=== PATIENT | female | born 1940 | race Caucasian/White ===

== ENCOUNTER 2020-02-15 15:24 | Outpatient (CLI) | payer MEDICARE, SELFPAY ==
--- NOTE | ~2020-02-15 | CT_ITS ---
EXAMINATION: CT brain wo con EXAM DATE: 02/15/2020 15:57 INDICATION: Memory loss. TECHNIQUE: Spiral CT of the head was performed without contrast. Axial, coronal and sagittal images were reviewed. The dose-length product (DLP) for this examination was 605.33 mGy-cm. The exposure w as tailored according to patient size, and iterative reconstruction (ASIR) was used as additional dos e reduction technique. Comparison is made to prior examination from 09/11/2012. FINDINGS: There is no acute intraparenchymal hemorrhage. No evidence of intraparenchymal brain mass lesion. No evidence of acute infarction. Please note that initial head CT has limited sensitivity f or small or acute infarctions. There is mild periventricular and subcortical hypodensity, nonspecific but probably related to small vessel ischemic disease. There is mild to moderate prominence of the sulci and ventricles related to cerebral atrophy. There is intracranial carotid arteriosclerosis. There are no extra-axial collections. There is no mass effect or midline shift. Patient has had le ft-sided ocular lens surgery. Soft tissue is unremarkable. Mild mucoperiosteal thickening. Mild pr ogression in age-related findings compared to 2013. IMPRESSION: 1. No acute intracranial findings. 2. Chronic age related findings. Reviewed, dictated and finalized at location A. [employer] REPA[employer]ER
== END 2020-02-15 15:25 | disposition home or self-care (01) ==
PROVIDERS: PCP Family Medicine; Visit Provider Psychiatry & Neurology Neurology
DX: R41.3 Other amnesia (principal)
CPT/HCPCS: 70450

== ENCOUNTER 2020-07-14 09:02 | Emergency (ER) | payer MEDICARE, SELFPAY ==
--- NOTE | ~2020-07-14 | XR_ITS ---
EXAMINATION: XR chest 2V EXAM DATE: 07/14/2020 08:51 INDICATION: hypoglycemia, stupor. History atrial fibrillation. TECHNIQUE: Frontal and lateral projections of the chest obtained and reviewed. Comparison is made to prior examination from 10/03/2014.. FINDINGS: Small amount of biapical postinfectious residua. The lungs are otherwise clear. There are no pleural effusions. The cardiomediastinal silhouette is within normal limits. There is no pneumo thorax suspected. Mild to moderate thoracolumbar scoliosis. There are cholecystectomy clips. IMPRESSION: No acute cardiopulmonary findings. Reviewed, dictated and finalized at location B.
[2020-07-14 08:04] VITALS: BP 135/72; PULSE 67; RESP 18; TEMP 37.1; O2SAT 100
[2020-07-14 08:07] LABS: Glucose Point of Care 152 mg/dl (65-105)
--- NOTE | 2020-07-14 08:15 | ECG_ITS ---
Measurements Intervals [place] Rate: 70 P: 40 MS: 171 QRS: 5 QRSD: 94 T: 46 QT: 427 QTc: 463 Interpretive Statements SINUS RHYTHM ATRIAL PREMATURE COMPLEX LOW QRS VOLTAGE IN PRECORDIAL LEADS BASELINE ARTIFACT- II, III, AVF, V1, V4-V6 BORDERLINE ECG Electronically Signed On 07-14-2020 9:15:18 CDT by Bob Trujillo D.O.
--- NOTE | 2020-07-14 08:17 | ED.RECABL ---
HPI - Recheck/Abnormal Lab/Rx General Chief Complaint: Recheck/Abnormal Lab/Rx Stated Complaint: Low blood sugar Time Seen by Provider: 07/14/20 08:05 Source: patient, family and RN notes reviewed Mode of arrival: EMS Limitations: dementia History of Present Illness HPI narrative: This is an 79 year old female with history of DM, dementia who presents from home for evaluation of a low blood sugar. Patient's son states he was unable to get patient to wake up this morning. He states he couldn't understand what she was saying. EMS was called and they found patient's blood sugar was in the 20s. She was given 250 ml D10 and she became responsive. Patient is now oriented x 2, and this is her baseline. She takes lantus 45 units daily, and her last dose was yesterday. Her son states she had low blood sugar on Friday when she was evaluated at [facility] for left eye infection. He states patient ate breakfast and lunch yesterday but he is unsure if she ate dinnner. PAtient does not remember if she ate dinner last night. She states she feels fine and she has no complaints. She denies chest pain, headache, sob, cough, nausea, vomiting, abdominal pain , diarrhea or fever. Related Data Home Medications Medication Instructions Recorded Confirmed pen needle, diabetic 32 gauge x #10 each 02/12/19 06/29/20 cyanocobalamin (vitamin B-12) 2,500 mcg SUBLINGUAL DAILY 07/14/20 [Vitamin B-12] diclofenac sodium PO 07/14/20 sitagliptin [Januvia] 25 mg PO DAILY 07/14/20 Allergies Allergy/AdvReac Type Severity Reaction Status Date / Time Penicillins Allergy Unknown Unknown Verified 07/14/20 08:09 Review of Systems Review of Systems: All systems reviewed & are unremarkable except as noted in HPI and below Constitutional: Constitutional: Denies chills and Denies fever(s) Eyes: Eyes: Reports eye discharge Respiratory: Respiratory: Denies cough, Denies dyspnea and Denies wheezing Gastrointestinal: Gastrointestinal: Denies abdominal pain, Denies diarrhea, Denies nausea and Denies vomiting Neurologic: Denies dizziness and Denies syncope PMF Past Medical History Medical History Chronic atrial fibrillation CKD (chronic kidney disease) stage 3, GFR 30-59 ml/min Depression Dyslipidemia Essential (primary) hypertension GERD without esophagitis Hx pulmonary embolism IDDM (insulin dependent diabetes mellitus) Iron deficiency Mild aortic valve regurgitation Mild diastolic dysfunction Unspecified osteoarthritis, unspecified site Vitamin B12 deficiency Family History Family History Other Family history of malignant neoplasm Social History Social History Smoking status: Never smoker Second hand tobacco smoke exposure: No Alcohol intake: never Substance use: never Substance use type: does not use Gender identity (if verbalized by the patient): Female Exam Const: General: no acute distress and alert Other: oriented to person and place HENMT: Face and sinus: face symmetric Throat: posterior oropharynx normal, tonsils normal and uvula midline Eyes: Conjunctivae: conjunctival abnormality left conjunctival injection and discharge EOM: EOMs intact bilaterally Chest: Chest palpation & inspection: normal inspection of the chest Resp: Effort & Inspection: normal respiratory effort and no retractions Auscultation: clear to auscultation bilaterally Cardio: Rate: regular rate Rhythm: regular rhythm Heart sounds: no murmurs GI: GI Palp: Yes Soft to palpation, No Tenderness to palpation present (GI) and No Guarding due to palpation present (GI) Auscultation: normal bowel sounds Skin: General skin exam: normal color Neuro: General: moves all extremities, no meningeal signs, no focal motor deficits and CN's II-XI intact bilater
[2020-07-14 08:49] LABS: Basophils Absolute Auto 0.1 K/mm3 (0.0-0.1); Basophils Percent Auto 0.7 % (0.2-1.2); Eosinophils Absolute Auto 0.1 K/mm3 (0-0.3); Eosinophils Percent Auto 0.7 % (0-4.4); Hematocrit 39.5 % (37.0-47.0); Hemoglobin 12.7 g/dL (12.0-15.0); Immature Granulocyte Absolute 0.05 K/mm3 (0.00-0.031); Immature Granulocyte Percent A 0.6 % (0-0.5); Lymphocytes Absolute Auto 2.11 K/mm3 (0.9-3.2); Lymphocytes Percent Auto 24.2 % (18.3-44.2); Mean Corpuscular HGB Conc 32.2 g/dl (32-36); Mean Corpuscular Hemoglobin 31.8 pg (26-34); Monocytes Absolute Auto 0.8 K/mm3 (0.1-0.6); Monocytes Percent Auto 9.2 % (2.6-8.5); Neutrophils Absolute Auto 5.7 K/mm3 (1.3-6.7); Neutrophils Percent Auto 64.6 % (45.5-73.1); Platelet Count Result 348 k/mm3 (150-375); Red Blood Count 3.99 M/mm3 (4.2-5.4); Red Cell Distribution Width 14.9 % (11.5-14.5); White Blood Count 8.7 K/mm3 (4.5-10.0)
[2020-07-14 09:00] LABS: Add Urine Microscopic? YES; Appearance Urine Clear (Clear); Bilirubin Urine Negative (Negative); Blood Urine Negative (Negative); Color Urine Yellow (Yellow); Glucose Urine UA Negative (Negative); Ketones Urine Negative (Negative); Leukocyte Esterase Ur Negative LEU/UL (Negative); Mucus Urine Rare /lpf; Nitrate Urine Negative (Negative); Protein Urine 1+ mg/dL (Negative); RBC Urine 0-2 /hpf (0-2); Specific Grav Ur 1.023 (1.001-1.035); Squamous Epithelial Cell Urine Rare /hpf (Few); Urobilinogen Urine Negative mg/dL (<2.0); WBC Urine 0-3 /hpf
[2020-07-14 09:01] LABS: Alanine Aminotransferase 17 U/L (4-35); Albumin Level 3.8 g/dL (3.5-5.1); Alkaline Phosphatase 59 U/L (38-126); Anion Gap 10 mmol/L (8-16); Aspartate Amino Transferase 36 U/L (14-36); Bilirubin,Total 0.6 mg/dL (0.2-1.3); Blood Urea Nitrogen 18 mg/dL (7-17); Calcium 9.1 mg/dL (8.4-10.2); Carbon Dioxide 23 mmol/L (22-30); Chloride 108 mmol/L (98-107); Estimated CRCL calculation 30 ml/min; Estimated Glomerular Filt Rate 43; Glucose 113 mg/dL (65-105); Potassium 2.9 mmol/L (3.4-5.0); Sodium 141 mmol/L (137-145)
[2020-07-14] MEDS: POTASSIUM CHLORIDE 20 MEQ TABLET 40 MEQ PO (09:20)
[2020-07-14 09:40] LABS: Glucose Point of Care 120 mg/dl (65-105)
[2020-07-14 10:49] VITALS: BP 134/98; PULSE 68; RESP 20; O2SAT 98
== END 2020-07-14 10:51 | disposition home or self-care (01) ==
PROVIDERS: Emergency Provider General Practice; PCP Family Medicine
DX: E11.649 Type 2 diabetes mellitus with hypoglycemia without coma (principal); E87.6 Hypokalemia; F03.90 Unspecified dementia, unspecified severity, without behavioral disturbance, psychotic disturbance, mood disturbance, and anxiety; E11.22 Type 2 diabetes mellitus with diabetic chronic kidney disease; I12.9 Hypertensive chronic kidney disease with stage 1 through stage 4 chronic kidney disease, or unspecified chronic kidney disease; N18.30 Chronic kidney disease, stage 3 unspecified; Z79.4 Long term (current) use of insulin; K21.9 Gastro-esophageal reflux disease without esophagitis; E78.5 Hyperlipidemia, unspecified; Z86.711 Personal history of pulmonary embolism; M19.90 Unspecified osteoarthritis, unspecified site; E53.8 Deficiency of other specified B group vitamins; I35.1 Nonrheumatic aortic (valve) insufficiency; I49.1 Atrial premature depolarization; R94.31 Abnormal electrocardiogram [ECG] [EKG]
CPT/HCPCS: 36415; 51701; 71046; 80053; 81001; 82948; 85025; 93005; 99283; A9270

== ENCOUNTER 2020-09-28 08:51 | Emergency (ER) | payer MEDICARE, SELFPAY ==
[2020-09-28] VITALS (13 sets, daily range): BP systolic 98–110; BP diastolic 56–66; PULSE 69–84; RESP 13–20; TEMP 36.6; O2SAT 93–100
--- NOTE | ~2020-09-28 | CT_ITS ---
EXAMINATION: CT chest abdomen pelvis w con DATE: 09/28/2020 11:48 INDICATION: Nausea and vomiting. Fall. TECHNIQUE: Computed tomography (CT) of the chest, abdomen, and pelvis was performed with 100 mL Omnip aque 350 intravenous contrast. Automated exposure control and iterative reconstruction technique were employed. The dose-length product was 543.16 mGy-cm. COMPARISON: Chest CT 09/27/2014 FINDINGS: CHEST CT: There is mild scarring in the peripheral upper lobes of the lungs. No pleural effusion. The heart siz e is normal. There are coronary artery calcifications. No pericardial effusion. There is a small slid ing hiatal hernia. ABDOMEN/PELVIS CT: The liver and spleen are normal. There are changes of cholecystectomy. There is wall thickening of th e gastric antrum, pylorus, and first portion of the duodenum with surrounding fat stranding. The panc reas and adrenal glands are normal. There is cortical thinning of the kidneys. There are cysts in the kidneys measuring up to 9 mm on the left. There is diverticulosis of the colon without evidence of d iverticulitis. There are no dilated loops of bowel. The appendix is not visualized. There are no path ologically enlarged lymph nodes. There is no free intraperitoneal fluid. There is a total right hip a rthroplasty in near-anatomic alignment. There is thoracolumbar levoscoliosis and severe spondylosis. IMPRESSION: 1. Inflammation of the gastric antrum, pylorus, and first portion of the duodenum, likely peptic ulce r disease. 2. Small sliding hiatal hernia. Reviewed, dictated and finalized at location B. IMPRESSION: 1. Inflammation of the gastric antrum, pylorus, and first portion of the duoden um, likely peptic ulcer disease. 2. Small sliding hiatal hernia.
--- NOTE | ~2020-09-28 | XR_ITS ---
XR knee RT 2V 09/28/2020 10:50 Indication: Status post fall. Right knee pain. Procedure: 2 views right knee Comparison: No prior studies for comparison. Findings: There is mild tricompartment osteoarthritis. No fracture, subluxation or dislocation. There is chondrocalcinosis. No significant joint effusion. Impression: 1: No acute fracture. Reviewed, dictated and finalized at location A. Impression: 1: No acute fracture.
--- NOTE | ~2020-09-28 | XR_ITS ---
EXAMINATION: XR pelvis 1-2V DATE: 09/28/2020 10:50 INDICATION: Fall. Unable to provide further history. TECHNIQUE: An anteroposterior view of the pelvis was obtained. COMPARISON: 12/05/2014 FINDINGS: . Visualized right total hip arthroplasty which remains in near-anatomic alignment. No fracture. Mode rate osteoarthritis at the left hip. Partially visualized lumbar levoscoliosis with moderate spondylo sis. IMPRESSION: 1. No acute osseous abnormality. Reviewed, dictated and finalized at location A.
--- NOTE | ~2020-09-28 | CT_ITS ---
EXAMINATION: CT brain wo con DATE: 09/28/2020 11:47 INDICATION: Head injury. TECHNIQUE: Computed tomography (CT) of the head was performed without intravenous contrast. The mA wa s adjusted according to patient size. Iterative reconstruction technique was employed. The dose-lengt h product was 756.67 mGy-cm. COMPARISON: Head CT 02/15/2020, brain MRI 01/02/2018 FINDINGS: There are scattered areas of low attenuation in the cerebral white matter, which is within normal limits for the patient's age. There is no intracranial hemorrhage, acute infarction, or abnorm al intracranial mass lesion. The ventricles are normal in size. There are likely changes of left ocul ar lens replacement surgery. There is mucosal thickening in the paranasal sinuses, worst in left maxi llary sinus. There is thickening and sclerosis of the mcgee of left maxillary sinus, consistent with chronic sinusitis. The mastoid air cells are normal. IMPRESSION: 1. Normal aging brain. 2. Chronic sinusitis. Reviewed, dictated and finalized at location B.
--- NOTE | ~2020-09-28 | CT_ITS ---
EXAMINATION: CT cervical spine wo con DATE: 09/28/2020 11:47 INDICATION: Status post fall. Neck pain. TECHNIQUE: Computed tomography (CT) of the cervical spine was performed without intravenous contrast. The dose-length product was 188 mGy-cm. Automated exposure control and iterative reconstruction tech nique were employed. COMPARISON: None FINDINGS: There is accentuated cervical lordosis. There is advanced degenerative disc disease at C3-4 , C4-5, C5-6, C6-7, C7-T1 and T1-2. There is degenerative anterolisthesis at C7-T1 and T1-2. No acute fracture, subluxation or dislocation. Lung apices are unremarkable. No paraspinal soft tissue abnorm ality. Odontoid process within normal limits. There is multilevel uncinate and facet hypertrophy. Support Group Manager niovertebral junction within normal limits. IMPRESSION: 1. No acute abnormality of the cervical spine. 2: Severe cervical spondylosis. Reviewed, dictated and finalized at location A.
--- NOTE | ~2020-09-28 | XR_ITS ---
EXAMINATION: XR chest 1V portable DATE: 09/28/2020 10:50 INDICATION: Nausea and vomiting. Fall. TECHNIQUE: A single frontal view of the chest was obtained. COMPARISON: Chest 2 views 07/14/2020 FINDINGS: There is mild scarring at the lung apices. No pleural effusion or pneumothorax. The heart s ize is normal. IMPRESSION: 1. Mild scarring at the lung apices. Reviewed, dictated and finalized at location B.
--- NOTE | 2020-09-28 09:22 | ED.GENADULT ---
HPI - General Adult General Chief complaint: Nausea/Vomiting/Diarrhea Stated complaint: N/V Time Seen by Provider: 09/28/20 09:20 History of Present Illness HPI narrative: Patient is an 80-year-old female with past medical history significant for atrial fibrillation on Eliquis, dementia who comes emergency room today accompanied by daughter complaining of nausea and vomiting. The daughter is concerned because the patient had a unwitnessed fall yesterday late afternoon. Says that she was on the couch and she fell off the couch and hit her head on the coffee table. This fall was unwitnessed as the caregiver was in another room but there was no known loss of consciousness. When the caregiver left yesterday evening the patient was then her normal state of health. When a caregiver came this morning the patient had vomited in the bathroom overnight. Patient is demented, she is in her baseline mental state currently. She is unable to tell me anything about the fall yesterday or the events that happened overnight. She says that she is feeling fine. Related Data Home Medications Medication Instructions Recorded Confirmed pen needle, diabetic 32 gauge x #10 each 02/12/19 07/17/20 cyanocobalamin (vitamin B-12) 2,500 mcg SUBLINGUAL DAILY 07/14/20 07/17/20 [Vitamin B-12] sitagliptin [Januvia] 25 mg PO DAILY 07/14/20 07/17/20 apixaban 5 mg tablet 5 mg PO BID tablet 07/17/20 07/17/20 atorvastatin 10 mg tablet 10 mg PO QHS tablet 07/17/20 07/17/20 omeprazole 20 mg capsule,delayed 20 mg PO DAILY cap 07/17/20 07/17/20 release Allergies Allergy/AdvReac Type Severity Reaction Status Date / Time Penicillins Allergy Unknown Unknown Verified 09/28/20 09:30 Review of Systems Constitutional: Constitutional: Reports as per HPI, Denies fever(s), Denies night sweats and Denies weakness Cardiovascular: Cardiovascular: Denies chest pain, Denies edema, Denies leg edema, Denies dyspnea and Denies orthopnea Respiratory: Respiratory: Denies cough and Denies dyspnea Gastrointestinal: Gastrointestinal: Reports as per HPI, Denies abdominal pain, Denies constipation, Denies diarrhea, Reports nausea and Reports vomiting Musculoskeletal: Musculoskeletal: Denies abnormal gait, Denies back pain, Denies numbness and Denies tingling Neurologic: Denies Abnormal speech present, Denies abnormal gait, Denies numbness, Denies tingling and Denies weakness Psychiatric: Psychiatric: Denies homicidal ideation and Denies suicidal ideation FORMERLY [facility], [facility]1983 Past Medical History Medical History Chronic atrial fibrillation CKD (chronic kidney disease) stage 3, GFR 30-59 ml/min Dementia Depression Dyslipidemia Essential (primary) hypertension GERD without esophagitis Hx pulmonary embolism IDDM (insulin dependent diabetes mellitus) Iron deficiency Mild aortic valve regurgitation Mild diastolic dysfunction Unspecified osteoarthritis, unspecified site Vitamin B12 deficiency Family History Family History Other Family history of malignant neoplasm Social History Social History Smoking status: Never smoker Second hand tobacco smoke exposure: No Alcohol intake: never Substance use: never Substance use type: does not use Gender identity (if verbalized by the patient): Female Exam Narrative: Elderly, demented, pleasant, no distress, resting comfortably in bed. Const: General: cooperative, healthy appearing, comfortable, no acute distress, well developed, alert, awake and Physically active Orientation/consciousness: patient oriented x3 HENMT: Head: normocephalic, atraumatic and other (She has a small superficial abrasion at the crown of her head) Ears: external ears normal and other (No hemotympanum) General nose exam: Normal external nose present Eyes: Pupils: Equal, round and
[2020-09-28 09:32] LABS: Basophils Absolute Auto 0.1 K/mm3 (0.0-0.1); Basophils Percent Auto 0.6 % (0.2-1.2); Eosinophils Percent Auto 0.2 % (0-4.4); Hematocrit 36.3 % (37.0-47.0); Hemoglobin 11.2 g/dL (12.0-15.0); Immature Granulocyte Absolute 0.08 K/mm3 (0.00-0.031); Immature Granulocyte Percent A 0.5 % (0-0.5); Lymphocytes Absolute Auto 2.31 K/mm3 (0.9-3.2); Lymphocytes Percent Auto 15.8 % (18.3-44.2); Mean Corpuscular HGB Conc 30.9 g/dl (32-36); Mean Corpuscular Hemoglobin 31.5 pg (26-34); Mean Corpuscular Volume 102.3 fl (80-100); Mean Platelet Volume 10.7 fl (7.4-10.4); Monocytes Absolute Auto 0.9 K/mm3 (0.1-0.6); Monocytes Percent Auto 5.8 % (2.6-8.5); Neutrophils Absolute Auto 11.3 K/mm3 (1.3-6.7); Neutrophils Percent Auto 77.1 % (45.5-73.1); Platelet Count Result 304 k/mm3 (150-375); Red Blood Count 3.55 M/mm3 (4.2-5.4); Red Cell Distribution Width 13.2 % (11.5-14.5); White Blood Count 14.7 K/mm3 (4.5-10.0)
[2020-09-28 09:49] LABS: Alanine Aminotransferase 13 U/L (4-35); Albumin Level 3.6 g/dL (3.5-5.1); Alkaline Phosphatase 52 U/L (38-126); Anion Gap 8 mmol/L (8-16); Aspartate Amino Transferase 26 U/L (14-36); Bilirubin,Total 0.6 mg/dL (0.2-1.3); Blood Urea Nitrogen 50 mg/dL (7-17); Calcium 8.9 mg/dL (8.4-10.2); Carbon Dioxide 18 mmol/L (22-30); Chloride 112 mmol/L (98-107); Estimated Glomerular Filt Rate 48; Glucose 129 mg/dL (65-110); Lipase 75 U/L (23-300); Potassium 4.7 mmol/L (3.4-5.0); Sodium 138 mmol/L (137-145)
[2020-09-28 10:11] LABS: Add Urine Microscopic? NO; Appearance Urine Clear (Clear); Bilirubin Urine Negative (Negative); Blood Urine Negative (Negative); Color Urine Yellow (Yellow); Glucose Urine UA Negative (Negative); Ketones Urine Negative (Negative); Leukocyte Esterase Ur Negative LEU/UL (Negative); Nitrate Urine Negative (Negative); Protein Urine Negative (Negative); Specific Grav Ur 1.025 (1.001-1.035); Urobilinogen Urine Negative mg/dL (<2.0)
--- NOTE | 2020-09-28 10:27 | ECG_ITS ---
Measurements Intervals [place] Rate: 69 P: 56 CO: 177 QRS: -6 QRSD: 87 T: 52 QT: 389 QTc: 419 Interpretive Statements SINUS RHYTHM WITH SINUS ARRHYTHMIA CONSIDER INFERIOR INFARCT, AGE INDETERMINATE ABNORMAL ECG Electronically Signed On 09-28-2020 19:54:20 CDT by Bob Trujillo D.O.
--- NOTE | 2020-09-28 10:28 | PC.NURSE ---
orders placed per PA verbal orders
--- NOTE | 2020-09-28 10:38 | PC.NURSE ---
Pt's daughter now at bedside. Daughter reports pt rolled off of the couch last night and hit her head on the ground. Dried blood noted to head. No swelling or open wounds. Daughter now has pt's medications at bedside. Pt taking Eliquis. Pt still has no complaints at this time. Denies headache, dizziness, or nausea at this time. Pt disoriented at baseline.
--- NOTE | 2020-09-28 10:45 | PC.NURSE ---
Talked to Sunni in lab at 10:45 to add on PT INR PTT and Trop I baseline
[2020-09-28 11:03] LABS: INR 1.5; Prothrombin Time 17.5 Seconds (11.1-14.7)
[2020-09-28 11:04] LABS: Partial Thromboplastin Time 26.2 SECONDS (22.3-36.8)
[2020-09-28 11:08] LABS: Troponin I < 0.012 ng/mL (0.000-0.034)
[2020-09-28] MEDS: ACETAMINOPHEN 325 MG TABLET 650 MG PO (12:08)
[2020-09-28] MEDS: FAMOTIDINE 20 MG/2 ML VIAL IV PUSH (13:54)
== END 2020-09-28 14:08 | disposition home or self-care (01) ==
PROVIDERS: Physician Assistant Medical; Emergency Provider Emergency Medicine; PCP Family Medicine
DX: R11.2 Nausea with vomiting, unspecified (principal); S09.90XA Unspecified injury of head, initial encounter; I48.20 Chronic atrial fibrillation, unspecified; E11.22 Type 2 diabetes mellitus with diabetic chronic kidney disease; I12.9 Hypertensive chronic kidney disease with stage 1 through stage 4 chronic kidney disease, or unspecified chronic kidney disease; N18.30 Chronic kidney disease, stage 3 unspecified; F03.90 Unspecified dementia, unspecified severity, without behavioral disturbance, psychotic disturbance, mood disturbance, and anxiety; K21.9 Gastro-esophageal reflux disease without esophagitis; E78.5 Hyperlipidemia, unspecified; Z86.711 Personal history of pulmonary embolism; I35.1 Nonrheumatic aortic (valve) insufficiency; M19.90 Unspecified osteoarthritis, unspecified site; E53.8 Deficiency of other specified B group vitamins; Z79.01 Long term (current) use of anticoagulants; R94.31 Abnormal electrocardiogram [ECG] [EKG]; M47.812 Spondylosis without myelopathy or radiculopathy, cervical region; K44.9 Diaphragmatic hernia without obstruction or gangrene; R93.3 Abnormal findings on diagnostic imaging of other parts of digestive tract; W08.XXXA Fall from other furniture, initial encounter
CPT/HCPCS: 36415; 51701; 70450; 71045; 71260; 72125; 72170; 73560; 74177; 80053; 81003; 83690; 84484; 85025; 85610; 85730; 93005; 96374; 99284; A9270; Q9967

== ENCOUNTER 2020-11-23 01:21 | Day surgery (SDC) | payer MEDICARE, SELFPAY ==
[2020-11-23 09:00] VITALS: BP 120/66; PULSE 58; RESP 16; TEMP 36.4; O2SAT 100
[2020-11-23] MEDS: LACTATED RINGERS 1,000 ML 150 ML IV CONT (09:06)
[2020-11-23 09:12] LABS: Glucose Point of Care 88 mg/dl (65-105)
--- NOTE | 2020-11-23 09:12 | WPDGICN ---
Assessment and Plan Assessment and plan (1) Melena: Code(s): K92.1 - Melena Status: Acute Assessment and Plan: Patient with recent episode of melenic stools. She has been maintained on anticoagulation because of atrial fibrillation. Plan to continue PPI an EGD will be performed to assess for possible upper GI source of blood loss. (2) PUD (peptic ulcer disease): Code(s): K27.9 - Peptic ulcer, site unspecified, unspecified as acute or chronic, without hemorrhage or perforation Status: Acute Assessment and Plan: Recent CT scan suspicious for possible ulcer disease to confirm this an EGD will be performed. Patient recently has been on PPI therapy. Continue monitoring hemoglobin intermittently is suggested while anticoagulated. Long-term use of PPI therapy may be best approach given her anticoagulation. GI Consult Note Consult date/time: 11/23/20 09:12 HPI: Suzy Verdugo is a 80 year old female Presents for EGD. Patient suffers with dementia. Apparently had vomiting of coffee-ground material and passage of black melenic stools prompting her to go to the ER in September. A CT scan performed recently suggest swelling in the stomach subspecialists for an ulcer. Patient has been maintained on omeprazole 20mg p.o. daily since that time. Previously had taken a moderate amount of nonsteroidal anti-inflammatory agents on a routine basis. Patient presents today for EGD to assess possible ulcer disease as a source of melenic GI blood loss. Review of Systems Review of Systems: ROS unobtainable: Yes unobtainable due to mental status PMFSH Past Medical History Medical History (Updated 10/24/20 @ 17:38 by SANIYA LeeN-C) Chronic atrial fibrillation CKD (chronic kidney disease) stage 3, GFR 30-59 ml/min Dementia Depression Dyslipidemia Essential (primary) hypertension GERD without esophagitis Hx pulmonary embolism IDDM (insulin dependent diabetes mellitus) Iron deficiency Melena Mild aortic valve regurgitation Mild diastolic dysfunction Unspecified osteoarthritis, unspecified site Vitamin B12 deficiency Family History Family History Other Family history of malignant neoplasm Social History Social History Smoking status: Never smoker Second hand tobacco smoke exposure: No Alcohol intake: never Substance use: never Substance use type: does not use Living arrangements: with family Gender identity (if verbalized by the patient): Female Spiritual care concerns: No Meds Home Medications and Allergies Home Medications Medication Instructions Recorded Confirmed Type pen needle, diabetic 32 gauge x #10 each 02/12/19 10/04/20 History blood-glucose meter #1 each 02/16/19 10/04/20 Rx blood sugar diagnostic See Rx Instructions .ROUTE 01/27/20 10/04/20 Rx .COMPLEX #200 strip lancets See Rx Instructions .ROUTE 01/27/20 10/04/20 Rx .COMPLEX #200 ea apixaban 5 mg tablet 5 mg PO BID tablet 07/17/20 11/23/20 History atorvastatin 10 mg tablet 10 mg PO QHS tablet 07/17/20 11/23/20 History citalopram 20 mg tablet 20 mg PO DAILY #90 tablet 09/26/20 11/23/20 Rx diltiazem HCl 180 mg 180 mg PO DAILY #90 cap 09/26/20 11/23/20 Rx capsule,extended release 24 hr ondansetron HCl 4 mg tablet 4 mg PO Q6H PRN #10 tablet 10/04/20 11/23/20 Rx sitagliptin 25 mg tablet 25 mg PO DAILY #90 tablet 10/17/20 11/23/20 Rx potassium chloride 20 mEq 20 meq PO DAILY #60 tablet 10/23/20 11/23/20 Rx tablet,extended release pantoprazole 40 mg tablet,delayed 40 mg PO QAM #90 tablet 10/31/20 11/23/20 Rx release insulin glargine [Lantus Solostar 25 unit SUBCUT QAM 11/09/20 11/23/20 History U-100 Insulin] memantine 10 mg PO BID 11/09/20 11/23/20 History omeprazole 20 mg PO DAILY 11/09/20 11/23/20 History alprazolam 0.25 mg tablet 0.25 mg PO DAILY PRN #90 tabl
--- NOTE | 2020-11-23 09:42 | WPDANESEPPF ---
Anes - Initial Pre Proc Eval Procedure: Operation Date: 11/23/20 10:00 Proposed Procedures p Esophagogastroduodenoscopy - Vahid Plascencia MD Date/Time: 11/23/20 09:42 Surgeon: Vahid Plascencia MD Pre Op Diagnosis: abnormal CAT scan, melena Patient Data Age: 80 Gender: F Height: 1.7 m Weight: 58.9 kg Last Vital Signs Temp 97.5 F L 11/23/20 09:00 Pulse 58 L 11/23/20 09:00 Resp 16 11/23/20 09:00 BP 120/66 11/23/20 09:00 Pulse Ox 100 11/23/20 09:00 Allergies Allergy/AdvReac Type Severity Reaction Status Date / Time Penicillins Allergy Unknown Unknown Verified 11/23/20 08:58 Home Medications Medication Instructions Recorded Confirmed Type pen needle, diabetic 32 gauge x #10 each 02/12/19 10/04/20 History blood-glucose meter #1 each 02/16/19 10/04/20 Rx blood sugar diagnostic See Rx Instructions .ROUTE 01/27/20 10/04/20 Rx .COMPLEX #200 strip lancets See Rx Instructions .ROUTE 01/27/20 10/04/20 Rx .COMPLEX #200 ea apixaban 5 mg tablet 5 mg PO BID tablet 07/17/20 11/23/20 History atorvastatin 10 mg tablet 10 mg PO QHS tablet 07/17/20 11/23/20 History citalopram 20 mg tablet 20 mg PO DAILY #90 tablet 09/26/20 11/23/20 Rx diltiazem HCl 180 mg 180 mg PO DAILY #90 cap 09/26/20 11/23/20 Rx capsule,extended release 24 hr ondansetron HCl 4 mg tablet 4 mg PO Q6H PRN #10 tablet 10/04/20 11/23/20 Rx sitagliptin 25 mg tablet 25 mg PO DAILY #90 tablet 10/17/20 11/23/20 Rx potassium chloride 20 mEq 20 meq PO DAILY #60 tablet 10/23/20 11/23/20 Rx tablet,extended release pantoprazole 40 mg tablet,delayed 40 mg PO QAM #90 tablet 10/31/20 11/23/20 Rx release insulin glargine [Lantus Solostar 25 unit SUBCUT QAM 11/09/20 11/23/20 History U-100 Insulin] memantine 10 mg PO BID 11/09/20 11/23/20 History omeprazole 20 mg PO DAILY 11/09/20 11/23/20 History alprazolam 0.25 mg tablet 0.25 mg PO DAILY PRN #90 tablet 11/21/20 11/23/20 Rx MDD anxiety Laboratory Tests 11/23/20 09:05 POC Capillary Glucose 88 mg/dl mg/dl (65-105) Patient hx anesthesia problems: none Family hx anesthesia problems: none Results Review: All pre-operative results and documents have been reviewed as part of the pre-operative evaluation. [facility] Past Medical History Medical History (Updated 10/24/20 @ 17:38 by KENDELL Lee) Chronic atrial fibrillation CKD (chronic kidney disease) stage 3, GFR 30-59 ml/min Dementia Depression Dyslipidemia Essential (primary) hypertension GERD without esophagitis Hx pulmonary embolism IDDM (insulin dependent diabetes mellitus) Iron deficiency Melena Mild aortic valve regurgitation Mild diastolic dysfunction Unspecified osteoarthritis, unspecified site Vitamin B12 deficiency Family History Family History Other Family history of malignant neoplasm Social History Social History Smoking status: Never smoker Second hand tobacco smoke exposure: No Alcohol intake: never Substance use: never Substance use type: does not use Living arrangements: with family Gender identity (if verbalized by the patient): Female Spiritual care concerns: No Anes - Eval Final PreProcedure Day of Procedure 11/23/20 09:42 Patient weight: normal Heart: regular rate and rhythm Lungs: clear to auscultation Airway: Mallampati scale class II Neurological: alert and oriented Last oral intake: >/= 8 hours ASA classification: III Emergent: no Anesthetic plan: proceed Anesthesia type and monitoring: general GIVS and standard monitoring Results Review: All pre-operative results and documents have been reviewed as part of the pre-operative evaluation. Informed Consent: The patient's anesthetic plan and its attendant risks and benefits were discussed with the patient/family/POA. Questions were solicited and answers provided to the satisfac
[2020-11-23 10:38] VITALS: BP 139/66; PULSE 53; RESP 21; O2SAT 98
[2020-11-23 10:48] VITALS: BP 145/73; PULSE 55; RESP 12; O2SAT 98
[2020-11-23 10:58] VITALS: BP 143/74; PULSE 53; RESP 20; O2SAT 98
[2020-11-23 11:06] LABS: Glucose Point of Care 83 mg/dl (65-105)
== END 2020-11-23 11:20 | disposition home or self-care (01) ==
PROVIDERS: PCP Family Medicine; Visit Provider Internal Medicine Gastroenterology
PROC: 0DJ08ZZ Inspection of Upper Intestinal Tract, Via Natural or Artificial Opening Endoscopic (ICD-10-PCS; CPT 43235; principal; 2020-11-23 10:00)
DX: R93.3 Abnormal findings on diagnostic imaging of other parts of digestive tract (principal); K92.1 Melena; K31.9 Disease of stomach and duodenum, unspecified; I12.9 Hypertensive chronic kidney disease with stage 1 through stage 4 chronic kidney disease, or unspecified chronic kidney disease; N18.30 Chronic kidney disease, stage 3 unspecified; E11.22 Type 2 diabetes mellitus with diabetic chronic kidney disease; I48.20 Chronic atrial fibrillation, unspecified; I35.1 Nonrheumatic aortic (valve) insufficiency; F03.90 Unspecified dementia, unspecified severity, without behavioral disturbance, psychotic disturbance, mood disturbance, and anxiety; E78.5 Hyperlipidemia, unspecified; F32.9 Major depressive disorder, single episode, unspecified; K21.9 Gastro-esophageal reflux disease without esophagitis; Z86.711 Personal history of pulmonary embolism; Z79.4 Long term (current) use of insulin; Z79.01 Long term (current) use of anticoagulants
CPT/HCPCS: 43239; 82948; 87081; J2704; J7120

== ENCOUNTER 2021-08-04 07:47 | Emergency (ER) | payer MEDICARE, SELFPAY ==
--- NOTE | ~2021-08-04 | XR_ITS ---
EXAMINATION: XR hip BI 2V w AP pelvis DATE: 08/04/2021 09:23 INDICATION: Hip pain after fall TECHNIQUE: AP view the pelvis and two views of each hip were obtained. COMPARISON: 09/28/2020 FINDINGS: There are changes of right hip arthroplasty. No fracture is identified. There is moderate o steoarthritis of the left hip. There is at least moderate spondylosis of the visualized lower lumbar spine. IMPRESSION: 1. Moderate left hip osteoarthritis without acute osseous abnormality. Reviewed, dictated and finalized at location A.
--- NOTE | ~2021-08-04 | CT_ITS ---
EXAMINATION: CT brain wo con INDICATION: Head injury COMPARISON: 09/28/2020 TECHNIQUE: Standard unenhanced head CT. The dose-length product (DLP) was 605.33 mGy-cm. The mA was a djusted according to patient size. Iterative reconstruction technique was employed. FINDINGS: There is no acute intraparenchymal hemorrhage. No evidence of mass lesion. No evidence of a cute infarction. There is mild periventricular and subcortical hypodensity probably related to small vessel ischemic disease. There is mild prominence of the sulci and ventricles related to cerebral atr ophy. Intracranial calcified cerebral atherosclerosis is noted. There are no extra-axial collections. There is no mass effect or midline shift. Changes in the left globe are likely from ocular lens surg joann. There is chronic opacification of the left maxillary sinus with thickening and sclerosis of the sinus mcgee, consistent with chronic sinusitis. There is mild mucosal thickening of the remaining par anasal sinuses. IMPRESSION: 1. No acute intracranial abnormality. 2. Chronic sinusitis. Reviewed, dictated and finalized at location A.
--- NOTE | ~2021-08-04 | XR_ITS ---
EXAMINATION: XR shoulder RT min 2V INDICATION: Right shoulder pain TECHNIQUE: Four views of the right shoulder are submitted. COMPARISON: 10/19/2003 FINDINGS: Normal alignment. No fracture. There is moderate osteoarthritis of the glenohumeral and acr omioclavicular joints. Soft tissues are unremarkable. IMPRESSION: 1. Osteoarthritis without acute osseous abnormality. Reviewed, dictated and finalized at location A.
--- NOTE | ~2021-08-04 | CT_ITS ---
EXAMINATION: CT cervical spine wo con DATE: 08/04/2021 09:15 INDICATION: Neck pain TECHNIQUE: Computed tomography (CT) of the cervical spine was performed without intravenous contrast. The dose-length product (DLP) was 307.42 mGy-cm. Automated exposure control and iterative reconstruc tion technique were employed. COMPARISON: 09/28/2020 FINDINGS: There are 2 mm of stable retrolisthesis of C3 on C4 and 4 mm of stable anterolisthesis of C 7 on T1. The vertebral body heights are maintained. There is severe loss of intervertebral disc space height throughout the cervical spine. The odontoid is intact. There is severe multilevel facet and u ncovertebral joint osteoarthritis. IMPRESSION: 1. Severe cervical spondylosis without acute findings or significant interval change. Reviewed, dictated and finalized at location A. IMPRESSION: 1. Severe cervical spondylosis without acute findings or significant interval dae toscano
[2021-08-04 07:54] VITALS: BP 111/62; PULSE 90; RESP 20; O2SAT 95
[2021-08-04 08:06] VITALS: RESP 20; O2SAT 95
--- NOTE | 2021-08-04 08:34 | ED.FALL ---
HPI - Fall General Chief Complaint: Fall Stated Complaint: Fall Time Seen by Provider: 08/04/21 07:49 History of Present Illness HPI Narrative: 80-year-old female presenting to the emergency department for evaluation after having a ground-level fall this morning. Family states that the patient attempted multiple times in order to stand up and when she finally stood up she was not able to stabilize and did lower herself down to the ground. Family came in and saw her laying on her left side. Patient had been complaining of head neck and hip pain after the incident. Patient does have history of Alzheimer's dementia. Patient is denying any complaints to me. Related Data Home Medications Medication Instructions Recorded Confirmed pen needle, diabetic 32 gauge x #10 ea 02/12/19 07/11/21 (BD Ultra-Fine Madeline Pen Needle) prevagen extra strength 1 cap BYMOUTH DAILY 12/28/20 07/11/21 vitamin B12 2,500 mcg-folic acid 1 tablet PO 3XW 01/25/21 07/11/21 400 mcg disintegrating tablet Allergies Allergy/AdvReac Type Severity Reaction Status Date / Time Penicillins Allergy Unknown Unknown Verified 08/04/21 08:21 Review of Systems Review of Systems: CONSTITUTIONAL: Denies fever, chills, or sweats. EYES: Denies visual changes, redness, or discharge. ENT: Denies rhinorrhea, congestion, sore throat, or otalgia. CARDIOVASCULAR: Denies chest pain, palpitations, or edema. RESPIRATORY: Denies cough or dyspnea. GASTROINTESTINAL: Denies abdominal pain, nausea, vomiting, or diarrhea. GENITOURINARY: Denies dysuria or hematuria. SKIN: Denies rash or itching. MUSCULOSKELETAL: See HPI NEUROLOGIC: Denies headache, numbness, or weakness. PSYCHIATRIC: Denies anxiety or depression. [facility] Past Medical History Medical History Anxiety Chronic atrial fibrillation CKD (chronic kidney disease) stage 3, GFR 30-59 ml/min Dementia Depression Dyslipidemia Essential (primary) hypertension GERD without esophagitis Hx pulmonary embolism IDDM (insulin dependent diabetes mellitus) Iron deficiency Melena Mild aortic valve regurgitation Mild diastolic dysfunction Unspecified osteoarthritis, unspecified site Vitamin B12 deficiency Family History Family History Other Family history of malignant neoplasm Social History Social History Smoking status: Never smoker Second hand tobacco smoke exposure: No Alcohol intake: never Substance use: never Substance use type: does not use Additional living arrangements 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 , PT HAS [employer]DER[employer] Gender identity (if verbalized by the patient): Female Spiritual care concerns: No Exam Narrative: APPEARANCE: Well appearing, no pain, no distress, well-nourished. HEAD: normocephalic, atraumatic. EYES: PERRLA/EOMI, conjunctivae clear. NOSE: Normal no drainage NECK: Supple. No adenopathy, no masses. RESPIRATORY: Airway patent, respirations nonlabored. Clear to auscultation bilaterally, no rales, rhonchi, wheezing. CARDIOVASCULAR: Regular rate and rhythm without murmurs rubs or gallops. ABDOMINAL: Soft, nontender, nondistended, normal bowel sounds MUSCULOSKELETAL: No pain with passive range of motion of hips. Some tenderness to right shoulder to palpation. No deformity. Normal range of motion. NEURO: Alert. Cranial nerves II through XII intact. At baseline, grossly intact SKIN: Warm, dry. Normal Color Course Course Emergency Course: Patient family were updated on the results of the work-up. Patient was able to ambulate at her baseline without issue. Patient and family are comfortable with the plan for discharge and close follow-up. All question concerns were addressed. Vital Signs Vital signs: Vital Signs Pulse Rate 90 08/04/21 07:54 Respiratory Rate 20 08/04/21 07:54 Blood Pressure 111/6
[2021-08-04 09:01] LABS: Basophils Absolute Auto 0.1 K/mm3 (0.0-0.1); Basophils Percent Auto 1.1 % (0.2-1.2); Eosinophils Absolute Auto 0.1 K/mm3 (0-0.3); Eosinophils Percent Auto 0.7 % (0-4.4); Hematocrit 40.6 % (37.0-47.0); Hemoglobin 12.8 g/dL (12.0-15.0); Immature Granulocyte Absolute 0.05 K/mm3 (0.00-0.031); Immature Granulocyte Percent A 0.5 % (0-0.5); Lymphocytes Absolute Auto 1.05 K/mm3 (0.9-3.2); Lymphocytes Percent Auto 11.5 % (18.3-44.2); Mean Corpuscular HGB Conc 31.5 g/dl (32-36); Mean Corpuscular Hemoglobin 29.4 pg (26-34); Mean Corpuscular Volume 93.3 fl (80-100); Mean Platelet Volume 10.6 fl (7.4-10.4); Monocytes Absolute Auto 1.1 K/mm3 (0.1-0.6); Monocytes Percent Auto 12.1 % (2.6-8.5); Neutrophils Absolute Auto 6.8 K/mm3 (1.3-6.7); Neutrophils Percent Auto 74.1 % (45.5-73.1); Platelet Count Result 223 k/mm3 (150-375); Red Blood Count 4.35 M/mm3 (4.2-5.4); Red Cell Distribution Width 14.7 % (11.5-14.5); White Blood Count 9.2 K/mm3 (4.5-10.0)
[2021-08-04 09:15] LABS: Alanine Aminotransferase 25 U/L (6-35); Albumin Level 3.7 g/dL (3.5-5.1); Alkaline Phosphatase 64 U/L (38-126); Anion Gap 3 mmol/L (8-16); Aspartate Amino Transferase 48 U/L (14-36); Bilirubin,Total 0.6 mg/dL (0.2-1.3); Blood Urea Nitrogen 22 mg/dL (7-17); Calcium 8.7 mg/dL (8.4-10.2); Carbon Dioxide 26 mmol/L (22-30); Chloride 109 mmol/L (98-107); Estimated CRCL calculation 29 ml/min; Estimated Glomerular Filt Rate 43; Glucose 105 mg/dL (65-110); Potassium 4.7 mmol/L (3.4-5.0); Sodium 138 mmol/L (137-145)
[2021-08-04 10:01] LABS: Appearance Urine Clear (Clear); Bilirubin Urine Negative (Negative); Blood Urine Negative (Negative); Color Urine Yellow (Yellow); Glucose Urine UA Negative (Negative); Ketones Urine Negative (Negative); Leukocyte Esterase Ur Negative LEU/UL (Negative); Nitrate Urine Negative (Negative); Protein Urine Negative (Negative); Urobilinogen Urine 0.2 mg/dL (<2.0); pH Urine 5.5 (5.0-9.0)
[2021-08-04 10:02] LABS: Add Urine Microscopic? NO
[2021-08-04] MEDS: ACETAMINOPHEN 325 MG TABLET 650 MG PO (11:15)
[2021-08-04 11:41] VITALS: RESP 16
== END 2021-08-04 11:42 | disposition home or self-care (01) ==
PROVIDERS: Emergency Provider Emergency Medicine; PCP Family Medicine
DX: S09.90XA Unspecified injury of head, initial encounter (principal); S19.9XXA Unspecified injury of neck, initial encounter; S79.919A Unspecified injury of unspecified hip, initial encounter; F03.90 Unspecified dementia, unspecified severity, without behavioral disturbance, psychotic disturbance, mood disturbance, and anxiety; I48.20 Chronic atrial fibrillation, unspecified; I12.9 Hypertensive chronic kidney disease with stage 1 through stage 4 chronic kidney disease, or unspecified chronic kidney disease; N18.30 Chronic kidney disease, stage 3 unspecified; E11.22 Type 2 diabetes mellitus with diabetic chronic kidney disease; E78.5 Hyperlipidemia, unspecified; K21.9 Gastro-esophageal reflux disease without esophagitis; I34.0 Nonrheumatic mitral (valve) insufficiency; E53.8 Deficiency of other specified B group vitamins; Z79.01 Long term (current) use of anticoagulants; Z79.84 Long term (current) use of oral hypoglycemic drugs; Z79.4 Long term (current) use of insulin; J32.9 Chronic sinusitis, unspecified; M16.12 Unilateral primary osteoarthritis, left hip; M19.011 Primary osteoarthritis, right shoulder; W18.39XA Other fall on same level, initial encounter
CPT/HCPCS: 36415; 51701; 70450; 72125; 73030; 73521; 80053; 81003; 85025; 99284; A9270

== ENCOUNTER 2021-08-15 16:19 | Emergency (ER) | payer MEDICARE, SELFPAY ==
--- NOTE | ~2021-08-15 | CT_ITS ---
EXAMINATION: CT facial & cervical spine wo DATE: 08/15/2021 17:43 INDICATION: head injury s/p fall TECHNIQUE: Computed tomography (CT) of the maxillofacial region and cervical spine was performed with out intravenous contrast. Automated exposure control and iterative reconstruction technique were empl oyed. The dose-length product was 312.81 mGy-cm. COMPARISON: None FINDINGS: CERVICAL: Vertebral Body Alignment: Intact. Craniocervical and atlantoaxial alignment: Severe degenerative change. Alignment intact. Osseous structures/fracture: No evidence of a lytic or blastic process in the visualized spine. No e vidence of acute fracture. Cervical soft tissues: The paraspinal soft tissues planes are maintained. Degenerative changes: Multilevel severe degenerative disc disease. Multilevel facet arthropathy. Mult ilevel bilateral severe neural foraminal narrowing. Severe central canal narrowing at C3-4. FACE: Soft Tissues: Right frontal/supraorbital soft tissue laceration and contusion. Facial bones: No acute fracture. No lytic or blastic process. Eyes: The globes are intact. Left lens replacement. The soft tissue planes of the orbits are maintai jay. Paranasal Sinuses: Retention cyst or polyp in a posterior left ethmoid air cell. Opacification and d ense material within the left maxillary sinus, right posterior ethmoid air cells, and the right sphen oid sinus. Foreign Bodies: No radiopaque foreign bodies. Other Findings: Periodontal disease. IMPRESSION: No acute fracture or traumatic malalignment in the cervical spine. No acute facial bone fracture. Chr onic sinusitis. Reviewed, dictated and finalized at location K. IMPRESSION: No acute fracture or traumatic malalignment in the cervical spine. No acute fac ial bone fracture. Chronic sinusitis.
--- NOTE | ~2021-08-15 | CT_ITS ---
EXAMINATION: CT brain wo con DATE: 08/15/2021 17:42 INDICATION: head injury s/p fall . TECHNIQUE: Computed tomography (CT) of the head was performed without intravenous contrast. The mA wa s adjusted according to patient size. Iterative reconstruction technique was employed. The dose-lengt h product was 605.33 mGy-cm. COMPARISON: 08/04/2021. FINDINGS: No acute intracranial hemorrhage or extra-axial fluid collection. No hydrocephalus, mass, or herniation. No acute ischemic infarct. Unremarkable dural venous sinus attenuation. No acute osseous abnormality. Right frontal/supraorbital soft tissue laceration/contusion. Opacification and inspissated material in the left maxillary, posterior ethmoid air cells, and right sphenoid sinus, otherwise the aerated spaces are clear. Mild atrophy and chronic white matter change. Atherosclerotic intracranial calcification. Left lens r eplacement. IMPRESSION: No acute intracranial process. Reviewed, dictated and finalized at location K.
[2021-08-15 16:21] VITALS: BP 104/66; PULSE 84; RESP 16; O2SAT 96
--- NOTE | 2021-08-15 16:27 | ECG_ITS ---
Measurements Intervals [place] Rate: 78 P: 36 [place]: 158 QRS: -1 QRSD: 82 T: 65 QT: 379 QTc: 434 Interpretive Statements SINUS RHYTHM LOW QRS VOLTAGE IN PRECORDIAL LEADS CONSIDER INFERIOR INFARCT, AGE INDETERMINATE BORDERLINE ST-T WAVE ABNORMALITY- HIGH LATERAL LEADS BASELINE ARTIFACT- II, III, AVR, AVL, AVF, V1 ABNORMAL ECG Electronically Signed On 08-20-2021 10:35:36 CDT by Bob Trujillo D.O.
--- NOTE | 2021-08-15 16:40 | ED.HEATRA ---
HPI - Head Injury General Chief complaint: Head Injury Stated complaint: fall Time Seen by Provider: 08/15/21 16:21 History of Present Illness HPI Narrative: 80-year-old pleasantly confused female presents to the emergency room for evaluation of a fall injury. Patient is normally unsteady on her feet, and witnesses state that she was attempting to reach for something on a counter when she misstepped and struck her head on the counter. Witness states that patient did not have a syncopal episode prior to event. This also states that patient was alert and oriented x1, which is her normal baseline. Family states patient is on a blood thinner for an unknown cardiac issue. Related Data Home Medications Medication Instructions Recorded Confirmed pen needle, diabetic 32 gauge x #10 ea 02/12/19 07/11/21 (BD Ultra-Fine Madeline Pen Needle) prevagen extra strength 1 cap BYMOUTH DAILY 12/28/20 07/11/21 vitamin B12 2,500 mcg-folic acid 1 tablet PO 3XW 01/25/21 07/11/21 400 mcg disintegrating tablet Allergies Allergy/AdvReac Type Severity Reaction Status Date / Time Penicillins Allergy Unknown Unknown Verified 08/04/21 08:21 Review of Systems Review of Systems: CONSTITUTIONAL: Denies fever, chills, or sweats. EYES: Denies visual changes, redness, or discharge. ENT: Denies rhinorrhea, congestion, sore throat, or otalgia. CARDIOVASCULAR: Denies chest pain, palpitations, or edema. RESPIRATORY: Denies cough or dyspnea. GASTROINTESTINAL: Denies abdominal pain, nausea, vomiting, or diarrhea. GENITOURINARY: Denies dysuria or hematuria. SKIN: Reports laceration to right brow MUSCULOSKELETAL: Denies back pain, joint pain, or myalgia. NEUROLOGIC: Denies headache, numbness, dizziness, or weakness. PSYCHIATRIC: Denies anxiety or depression. [facility] Past Medical History Medical History Anxiety Chronic atrial fibrillation CKD (chronic kidney disease) stage 3, GFR 30-59 ml/min Dementia Depression Dyslipidemia Essential (primary) hypertension GERD without esophagitis Hx pulmonary embolism IDDM (insulin dependent diabetes mellitus) Iron deficiency Melena Mild aortic valve regurgitation Mild diastolic dysfunction Unspecified osteoarthritis, unspecified site Vitamin B12 deficiency Family History Family History Other Family history of malignant neoplasm Social History Social History Smoking status: Never smoker Second hand tobacco smoke exposure: No Alcohol intake: never Substance use: never Substance use type: does not use Additional 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 HEAD: Normocephalic, 1 cm linear laceration to the right brow, lateral side. Localized soft tissue swelling and ecchymosis noted EYES: Conjunctivae normal, PERRLA and EOMI. NECK: Supple. No meningeal signs. No adenopathy or masses. No carotid bruits or JVD CHEST: Clear to auscultation. No respiratory distress. No wheezes rales or rhonchi. No tenderness. HEART: Regular rate and rhythm. No murmur heard. Normal peripheral pulses. BACK: No CVA tenderness; No cervical/thoracic/lumbar tenderness, step-offs, bony abnormality; FROM EXTREMITIES: Normal range of motion. No edema. No clubbing or cyanosis SKIN: Warm, dry, no rash. No noted wounds. See: HEAD NEURO: No focal deficits. Alert and oriented x1. MAEW. CN's II-XI intact bilaterally PSYCH: Cooperative. Normal mood and affect. Course Vital Signs Vital signs: Vital Signs Pulse Rate 84 08/15/21 16:21 Respiratory Rate 16 08/15/21 16:21 Blood Pressure 104/66 08/15/21 16:21 Pulse Oximetry 96
[2021-08-15 18:35] VITALS: BP 100/61; PULSE 74; RESP 17; O2SAT 99
== END 2021-08-15 18:37 | disposition home or self-care (01) ==
PROVIDERS: Emergency Provider Nurse Practitioner Family; PCP Family Medicine
DX: S01.81XA Laceration without foreign body of other part of head, initial encounter (principal); I48.20 Chronic atrial fibrillation, unspecified; I12.9 Hypertensive chronic kidney disease with stage 1 through stage 4 chronic kidney disease, or unspecified chronic kidney disease; E11.22 Type 2 diabetes mellitus with diabetic chronic kidney disease; N18.30 Chronic kidney disease, stage 3 unspecified; I26.99 Other pulmonary embolism without acute cor pulmonale; F03.90 Unspecified dementia, unspecified severity, without behavioral disturbance, psychotic disturbance, mood disturbance, and anxiety; W22.09XA Striking against other stationary object, initial encounter
CPT/HCPCS: 12011; 70450; 70486; 72125; 93005; 99284; L0140

== ENCOUNTER 2021-11-16 09:51 | Outpatient (CLI) | payer MEDICARE, SELFPAY ==
[2021-11-16 10:29] LABS: INR 1.3; Partial Thromboplastin Time 28.4 SECONDS (22.3-36.8)
[2021-11-16 10:59] LABS: Anion Gap 9 mmol/L (8-16); Blood Urea Nitrogen 20 mg/dL (7-17); Calcium 8.6 mg/dL (8.4-10.2); Carbon Dioxide 24 mmol/L (22-30); Chloride 106 mmol/L (98-107); Estimated Glomerular Filt Rate 43; Glucose 289 mg/dL (65-110); Potassium 3.9 mmol/L (3.4-5.0); Sodium 139 mmol/L (137-145)
== END 2021-11-16 09:52 | disposition home or self-care (01) ==
LOC: ANHSURGERY 09:56
PROVIDERS: Anesthesiology; PCP Family Medicine; Visit Provider Dentist
DX: Z01.812 Encounter for preprocedural laboratory examination (principal); N18.30 Chronic kidney disease, stage 3 unspecified; Z51.81 Encounter for therapeutic drug level monitoring; Z79.899 Other long term (current) drug therapy
CPT/HCPCS: 36415; 80048; 85610; 85730

== ENCOUNTER 2021-11-21 00:57 | Day surgery (SDC) | payer MEDICARE, SELFPAY ==
[2021-11-14 10:40] VITALS: BMI 23.4
--- NOTE | 2021-11-14 10:56 | PC.NURSE ---
Report to the Outpatient Waiting Room, entrance under the green pavilion located off [facility], at time 0630 on date __11/21/21 . OR Time: _0830 . Time changes happen often and if your time is changed the preop area will call you the afternoon before. - You and your visitor will be asked to self-screen and do not enter if you have any COVID symptoms. - Only one visitor and NO children visitors are allowed at this time. - The patient visitor is requested to leave or wait in car when not with patient due to restrictions. - A mask is required within the hospital. Patients may have clear liquids (water, carbonated beverages, clear teas, apple juice) until 3 hours prior to surgery with a maximum of 20 ounces. - No food from midnight until time of surgery - Infants may have breast milk until 4 hours before surgery, formula 6 hours prior to surgery. - Children will be allowed to drink immediately following surgery. If applicable, please bring a bottle or sippy cup to assist with drinking. Juice, water, soda, and popsicles are readily available. For infants on formula, please bring formula the day of surgery. Pacifiers are allowed. Take the following medications with a SIP of water the morning of surgery: ___MEMANTINE Medications to discontinue per physician ___SPOUSE DON STATES ELIQUIS LAST DOSE WILL BE 11/18/21. ALL VITAMINS AND SUPPLEMENTS 3 DAY PREOP Date to take last dose__ALL VITAMINS AND SUPPLEMENTS 11/17/21 Please no make-up, nail albanian, hairspray, perfume, deodorant, or body powder the day of surgery. No jewelry (including any body piercings) or valuables the day of surgery, leave them at home. Please take a shower or bath the night before, or the morning of, surgery with an antibacterial soap. Wear comfortable, loose fitting clothing. Children are encouraged to wear pajamas. - Jewelry must be removed prior to entering the operating room. Rings and piercings that are not removed may be cut off. - The hospital will not accept responsibility for valuables. - Please leave all valuables, including medications, at home the day of surgery. If you are going home after surgery, a licensed emt driver must drive you home. - NO public transportation without another adult. - We recommend that an adult stay with you for 24 hours following discharge. - We also recommend that you do not drive, make important decision, drink alcoholic beverages, or take any drugs that were not prescribed by your health care provider for at least 24 hours after your discharge time. For Pediatric surgeries, we recommend two adults accompany the child home (only one inside the building at this time). Follow any additional instructions given to you from your surgeon. If you or anyone in your household have experienced Covid symptoms in the past week, please notify your surgeon or the nurse liaison at the phone number below for possible testing. Telephone instructions given to _SPOUSE DON and asked if any additional questions and then verbalized understanding. Patient advised to call surgeon office or pre surgery nurse liaison [phone] if any additional questions.
[2021-11-21] VITALS (12 sets, daily range): BP systolic 134–186; BP diastolic 79–104; PULSE 75–91; RESP 14–20; TEMP 36.3–36.4; O2SAT 91–97
--- NOTE | ~2021-11-21 | XR_ITS ---
XR_[id number] 11/21/2021 09:20 Indication: Patient lost piece of tooth. Procedure: 2 views of the cervical spine Comparison: No prior studies for comparison. Findings: There is a calcific radiodensity overlying the laryngopharynx adjacent to the endotracheal tube which may represent soft tissue calcification, although tooth fragment is not excluded. Recommen d correlation with CT. Endotracheal tube tip 1.9 cm above the darrion. Moderate spondylosis of the vis ualized cervical spine. Impression: 1: Calcific radiodensity overlying the laryngopharynx. Cannot exclude tooth fragment at this level. R ecommend correlation with CT. Reviewed, dictated and finalized at location A. Impression: 1: Calcific radiodensity overlying the laryngopharynx. Cannot exclude tooth fra gment at this level. Recommend correlation with CT.
[2021-11-21 07:14] LABS: Glucose Point of Care 182 mg/dl (65-105)
[2021-11-21 07:24] LABS: INR 1.1; Prothrombin Time 13.6 Seconds (11.1-14.7)
--- NOTE | 2021-11-21 07:36 | WPDHPUPDATE1 ---
History and Physical Update Update Date/Time: 11/21/21 07:36 History and Physical has been reviewed, including an updated exam of the patient. There are NO changes in the patient's condition. Risks, benefits, and alternatives have been discussed and questions answered. Patient agrees to proceed with procedure.
--- NOTE | 2021-11-21 07:36 | PM.IMHP ---
H&P: HPI History of Present Illness Date/Time: 11/21/21 07:36 Chief Complaint: bad teeth PMFSH Past Medical History Medical History Anxiety Chronic atrial fibrillation CKD (chronic kidney disease) stage 3, GFR 30-59 ml/min Dementia Depression Dyslipidemia Essential (primary) hypertension GERD without esophagitis Hx pulmonary embolism IDDM (insulin dependent diabetes mellitus) Iron deficiency Melena Mild aortic valve regurgitation Mild diastolic dysfunction Unspecified osteoarthritis, unspecified site Vitamin B12 deficiency Family History Family History Other Family history of malignant neoplasm Social History Social History Smoking status: Never smoker Second hand tobacco smoke exposure: No Alcohol intake: never Substance use: never Substance use type: does not use Living arrangements: with family Additional 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 arrangements 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 , 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 Gender identity (if verbalized by the patient): Female Spiritual care concerns: No Meds Home Medications and Allergies Home Medications Medication Instructions Recorded Confirmed Type pen needle, diabetic 32 gauge x #10 ea 02/12/19 11/21/21 History 32 (BD Ultra-Fine Madeline Pen Needle) blood-glucose meter (Accu-Chek #1 ea 02/16/19 11/21/21 Rx Maritza Plus Meter) blood sugar diagnostic (Accu-Chek See Rx Instructions .Route 01/27/20 11/21/21 Rx Maritza Plus test strips) .COMPLEX #200 strips lancets (Accu-Chek Softclix See Rx Instructions .Route 01/27/20 11/21/21 Rx Lancets) .COMPLEX #200 ea prevagen extra strength 1 cap BYMOUTH DAILY 12/28/20 11/21/21 History hydrocortisone acetate 25 mg 25 mg RECTAL QHS PRN hemorrhoids 01/22/21 11/21/21 Rx rectal suppository (Anusol-HC) #24 ea vitamin B12 2,500 mcg-folic acid 1 tablet PO 3XW 01/25/21 11/21/21 History 400 mcg disintegrating tablet ondansetron HCl 4 mg tablet 4 mg PO Q6H PRN nausea and 02/19/21 11/21/21 Rx vomiting #10 tabs insulin glargine 100 unit/mL (3 25 unit (0.25 mL) subcut QAM #15 mL 04/11/21 11/21/21 Rx mL) subcutaneous pen (Lantus Solostar U-100 Insulin) omeprazole 20 mg capsule,delayed 20 mg PO DAILY #90 caps 06/14/21 11/21/21 Rx release alprazolam 0.25 mg tablet 0.25 mg PO QHS PRN anxiety 08/21/21 11/21/21 History melatonin 10 mg tablet 10 mg PO QHS 08/21/21 11/21/21 History triamcinolone acetonide 0.5 % 1 applic topical DAILY #30 grams 08/21/21 11/21/21 Rx topical cream apixaban 2.5 mg tablet (Eliquis) 2.5 mg PO BID #180 tabs 09/04/21 11/21/21 Rx atorvastatin 10 mg tablet 10 mg PO QHS #90 tabs 09/04/21 11/21/21 Rx citalopram 20 mg tablet 20 mg PO DAILY #90 tabs 09/04/21 11/21/21 Rx sitagliptin 25 mg tablet (Januvia) 25 mg PO DAILY #90 tabs 10/22/21 11/21/21 Rx potassium chloride 20 mEq See Rx Instructions .Route 10/23/21 11/21/21 Rx tablet,extended release .COMPLEX #60 tabs memantine 10 mg tablet See Rx Instructions .Route 11/19/21 11/21/21 Rx .COMPLEX #180 tabs Allergies Allergy/AdvReac Type Severity Reaction Status Date / Time Penicillins Allergy Unknown Unknown Verified 11/21/21 06:44 Vital Signs Vital Signs - 24 hr 11/21/21 07:21 Temperature 36.4 C Pulse Rate 88 Respiratory Rate 16 Blood Pressure 134/82 Pulse Oximetry 97 Oxygen Delivery Room Air Assessment and Plan Assessment and plan (1) Non-restorable tooth: Code(s): K08.89 - Other specified disorders of teeth and supporting structures Status: Acute Assessment and Plan: fmte Plan fmte
--- NOTE | 2021-11-21 08:05 | WPDANESEPPF ---
Anes - Initial Pre Proc Eval Procedure: Operation Date: 11/21/21 08:30 Proposed Procedures p Extractions of Twelve Teeth, Eight, Nine, Ten, Eleven, Twelve, Fourteen, Twenty Two, Twenty Three, Twenty Four, Twenty Five, Twenty Six, Twenty Seven - Aries Romano DMD Date/Time: 11/21/21 08:05 Surgeon: Aries Romano DMD Pre Op Diagnosis: dental caries Patient Data Age: 81 Gender: F Height: 1.68 m Weight: 67.6 kg Last Vital Signs Temp 97.6 F 11/21/21 07:21 Pulse 88 11/21/21 07:21 Resp 16 11/21/21 07:21 BP 134/82 11/21/21 07:21 Pulse Ox 97 11/21/21 07:21 O2 Del Method Room Air 11/21/21 07:21 Allergies Allergy/AdvReac Type Severity Reaction Status Date / Time Penicillins Allergy Unknown Unknown Verified 11/21/21 06:44 Home Medications Medication Instructions Recorded Confirmed Type pen needle, diabetic 32 gauge x #10 ea 02/12/19 11/21/21 History (BD Ultra-Fine Madeline Pen Needle) blood-glucose meter (Accu-Chek #1 ea 02/16/19 11/21/21 Rx Maritza Plus Meter) blood sugar diagnostic (Accu-Chek See Rx Instructions .Route 01/27/20 11/21/21 Rx Maritza Plus test strips) .COMPLEX #200 strips lancets (Accu-Chek Softclix See Rx Instructions .Route 01/27/20 11/21/21 Rx Lancets) .COMPLEX #200 ea prevagen extra strength 1 cap BYMOUTH DAILY 12/28/20 11/21/21 History hydrocortisone acetate 25 mg 25 mg RECTAL QHS PRN hemorrhoids 01/22/21 11/21/21 Rx rectal suppository (Anusol-HC) #24 ea vitamin B12 2,500 mcg-folic acid 1 tablet PO 3XW 01/25/21 11/21/21 History 400 mcg disintegrating tablet ondansetron HCl 4 mg tablet 4 mg PO Q6H PRN nausea and 02/19/21 11/21/21 Rx vomiting #10 tabs insulin glargine 100 unit/mL (3 25 unit (0.25 mL) subcut QAM #15 mL 04/11/21 11/21/21 Rx mL) subcutaneous pen (Lantus Solostar U-100 Insulin) omeprazole 20 mg capsule,delayed 20 mg PO DAILY #90 caps 06/14/21 11/21/21 Rx release alprazolam 0.25 mg tablet 0.25 mg PO QHS PRN anxiety 08/21/21 11/21/21 History melatonin 10 mg tablet 10 mg PO QHS 08/21/21 11/21/21 History triamcinolone acetonide 0.5 % 1 applic topical DAILY #30 grams 08/21/21 11/21/21 Rx topical cream apixaban 2.5 mg tablet (Eliquis) 2.5 mg PO BID #180 tabs 09/04/21 11/21/21 Rx atorvastatin 10 mg tablet 10 mg PO QHS #90 tabs 09/04/21 11/21/21 Rx citalopram 20 mg tablet 20 mg PO DAILY #90 tabs 09/04/21 11/21/21 Rx sitagliptin 25 mg tablet (Januvia) 25 mg PO DAILY #90 tabs 10/22/21 11/21/21 Rx potassium chloride 20 mEq See Rx Instructions .Route 10/23/21 11/21/21 Rx tablet,extended release .COMPLEX #60 tabs memantine 10 mg tablet See Rx Instructions .Route 11/19/21 11/21/21 Rx .COMPLEX #180 tabs Laboratory Tests 11/21/21 11/21/21 07:08 07:11 PT 13.6 Seconds Seconds (11.1-14.7) INR 1.1 POC Capillary Glucose 182 mg/dl H mg/dl (65-105) Patient hx anesthesia problems: none Family hx anesthesia problems: none Results Review: All pre-operative results and documents have been reviewed as part of the pre-operative evaluation. [facility] Past Medical History Medical History Anxiety Chronic atrial fibrillation CKD (chronic kidney disease) stage 3, GFR 30-59 ml/min Dementia Depression Dyslipidemia Essential (primary) hypertension GERD without esophagitis Hx pulmonary embolism IDDM (insulin dependent diabetes mellitus) Iron deficiency Melena Mild aortic valve regurgitation Mild diastolic dysfunction Unspecified osteoarthritis, unspecified site Vitamin B12 deficiency Family History Family History Other Family history of malignant neoplasm Social History Social History Smoking status: Never smoker Second hand tobacco smoke exposure: No Alcohol intake: never Substance use: never Substance use type: does not use
[2021-11-21] MEDS: LACTATED RINGERS 1,000 ML 30 ML IV CONT ×2 (08:13→11:36)
--- NOTE | 2021-11-21 09:21 | SUR.OPER ---
Addendum entered by Brittany Mtz RN 11/21/21 09:27: 09:27 Dr Romano informed of radiologist report per Ashley Niels X-ray tech. Original Note: While extracting teeth, a small fragment of tooth was not able to be found. X-rays, x 2, was taken of patients mouth.
[2021-11-21] MEDS: LIDOCAINE 2%-EPI (FOR DENTAL BLOCK) 1.7 ML CARTRIDGE INFILTRATE (09:49)
--- NOTE | 2021-11-21 10:02 | P.OP_ITS ---
Procedure Note - Detailed Date of Procedure 11/21/21 Pre-op Diagnosis dental caries Post-op Diagnosis Same Procedure [facility] Aries Romano, DMD Description of Procedure Preoperative diagnosis nonrestorable dentition postop diagnosis same procedure full mouth tooth extraction. Anesthesia general anesthesia and 5cc of 2% lidocaine with 1 1000 epinephrine. Estimated blood loss 10 complications none. Patient encountered in the operating room to the care of the Anesthesia Service who induced general anesthetic. Patient was then draped in the usual manner for an intraoral surgical procedure. Oral cavity suctioned free of debris and throat pack placed. Local anesthetic administered. A 15 blade was used to make on the maxillary ridge and a full-thickness flap was elevated through the buccal. Teeth numbers 6 9 10 11 12 and 14 were removed using elevator forceps technique. During the removal of tooth 11. The root came out of the socket quickly and escaped the clasp of the forceps. the assistant passenger locomotive engineer and I thought the root went out into the drapes. I thuroughly looked for it in the mouth and did not see it. I carefully removed the throat pack and did not see the tooth. Anesthesia then did a direct laryngoscopy and did not see the tooth. Throat pack placed. Radiology then did a PA and Lateral film with no evidence of the root seen. Radiology marked one are of possible fragment on the lateral although likely too small to be the root of a maxillary canine. All sockets curetted free of debris and irrigated copious amount sterile saline and then packed with Surgicel and closed using 4-0 chromic gut suture in continuous interrupted fashion. Attention was turned to the mandible were a incision was made in the anterior mandible no full-thickness flaps elevated the buckle. Teeth numbers 22 through 27 were then removed using forceps technique with minimal ostectomy. Wound was irrigated and the extraction sites packed with Surgicel and then the tissues closed using 4-0 chromic gut suture in interrupted and continuous fashion. The oral cavity was again suctioned free of debris throat pack was r emoved. again anesthesia performed a DL and did not see any fragments of teeth in area of interest on film. Anesthesia extubated the patient transferred to recovery in stable condition.
[2021-11-21 10:14] LABS: Glucose Point of Care 165 mg/dl (65-105)
[2021-11-21] MEDS: fentaNYL CITRATE INJ (*CRX) 100 MCG/2 ML VIAL 25 MCG IV PUSH ×4 (10:59→12:00)
[2021-11-21] MEDS: LABETALOL HCL INJ 100 MG/20 ML VIAL 10 MG IV PUSH (11:35)
== END 2021-11-21 13:00 | disposition home or self-care (01) ==
PROVIDERS: Anesthesiology; PCP Family Medicine; Visit Provider Dentist
PROC: (CPT 21031; principal; 2021-11-21 08:30)
DX: K02.9 Dental caries, unspecified (principal); K08.89 Other specified disorders of teeth and supporting structures; I48.20 Chronic atrial fibrillation, unspecified; I13.10 Hypertensive heart and chronic kidney disease without heart failure, with stage 1 through stage 4 chronic kidney disease, or unspecified chronic kidney disease; N18.30 Chronic kidney disease, stage 3 unspecified; F03.90 Unspecified dementia, unspecified severity, without behavioral disturbance, psychotic disturbance, mood disturbance, and anxiety; E78.5 Hyperlipidemia, unspecified; K21.9 Gastro-esophageal reflux disease without esophagitis; E11.22 Type 2 diabetes mellitus with diabetic chronic kidney disease; I35.1 Nonrheumatic aortic (valve) insufficiency; E53.8 Deficiency of other specified B group vitamins; E61.1 Iron deficiency; F41.9 Anxiety disorder, unspecified; Z79.4 Long term (current) use of insulin; Z79.01 Long term (current) use of anticoagulants; Z79.84 Long term (current) use of oral hypoglycemic drugs
CPT/HCPCS: D7240 ×12; 36415; 72040; 82948; 85610; J0330; J1100; J2405; J2704; J3010; J7120

== ENCOUNTER 2022-01-15 10:41 | Outpatient (CLI) | payer MEDICARE, SELFPAY ==
[2022-01-15 19:02] LABS: Hemoglobin A1C 8.3 % (<5.7)
[2022-01-15 19:11] LABS: Alanine Aminotransferase 13 U/L (6-35); Albumin Level 3.5 g/dL (3.5-5.1); Alkaline Phosphatase 63 U/L (38-126); Anion Gap 4 mmol/L (8-16); Aspartate Amino Transferase 37 U/L (14-36); Bilirubin,Total 0.6 mg/dL (0.2-1.3); Blood Urea Nitrogen 21 mg/dL (7-17); Calcium 8.5 mg/dL (8.4-10.2); Carbon Dioxide 29 mmol/L (22-30); Chloride 105 mmol/L (98-107); Estimated Glomerular Filt Rate 53; Glucose 303 mg/dL (65-110); Potassium 4.5 mmol/L (3.4-5.0); Sodium 138 mmol/L (137-145)
== END 2022-01-15 10:42 | disposition home or self-care (01) ==
LOC: ANHGOSHLAB 10:43
PROVIDERS: PCP Family Medicine; Visit Provider Family Medicine
DX: E11.9 Type 2 diabetes mellitus without complications (principal); I12.9 Hypertensive chronic kidney disease with stage 1 through stage 4 chronic kidney disease, or unspecified chronic kidney disease; N18.31 Chronic kidney disease, stage 3a
CPT/HCPCS: 36415; 80053; 83036

== ENCOUNTER 2022-07-17 11:20 | Emergency (ER) | payer MEDICARE, SELFPAY ==
--- NOTE | ~2022-07-17 | CT_ITS ---
EXAMINATION: CT abdomen pelvis w con DATE: 07/17/2022 12:41 INDICATION: Abdominal pain, back pain TECHNIQUE: Computed tomography (CT) of the abdomen and pelvis was performed with 100 CC Omnipaque 350 intravenous contrast. Automated exposure control and iterative reconstruction technique were employe d. Exam dose: 540.46 mGy-cm total exam DLP. COMPARISON: 09/28/2020 CT chest abdomen pelvis FINDINGS: The lung bases are clear. There is cardiomegaly. Coronary artery calcification. No pericard ial or pleural effusion. Status post cholecystectomy, which likely accounts for mild prominence of the intrahepatic and extrah epatic bile ducts. No hepatic, splenic or pancreatic space-occupying mass lesion is detected. No pancreatic duct dilatat ion. Normal morphology of the adrenal glands. Several bilateral renal cysts are noted, the largest approximate 12 mm, situated on the left. No urin norma tract calculus or hydroureteronephrosis. There is abdominal aortic calcification. Prominent calcification at the origin of the superior mesent mallorie and renal arteries, especially the proximal left renal artery. No abdominal aortic aneurysm. No intraperitoneal or retroperitoneal or pelvic mass lesion or adenopathy or ascites is detected. The uterus, adnexal areas and urinary bladder are unremarkable. Diverticulosis of left and right colon, most numerous in the sigmoid region. No CT evidence of divert iculitis. Occasional small and large bowel air-fluid levels. No bowel obstruction, bowel wall thicken ing, pneumatosis or intraperitoneal free air. Status post right hip replacement. Prominent osteoarthritis of the left hip. Scoliosis and degenerati ve change of the thoracic and particularly the lumbar spine. IMPRESSION: Status post cholecystectomy Bilateral renal cysts Diverticulosis of the colon; no CT evidence of diverticulitis Occasional small and large bowel air-fluid levels, which may be due to enterocolitis or mild adynamic ileus Reviewed, dictated and finalized at [facility]. Reviewed, dictated and finalized at location [] IMPRESSION: Status post cholecystectomy Bilateral renal cysts Diverticulosis of the colon; no CT evidence of diverticulitis Occasional small and large bowel air-fluid levels, which may be due to enteroco litis or mild adynamic ileus
[2022-07-17 11:23] VITALS: BP 100/74; PULSE 71; RESP 18; TEMP 36.4; O2SAT 98
--- NOTE | 2022-07-17 11:29 | ECG_ITS ---
Measurements Intervals [place] Rate: 66 P: 29 MN: 152 QRS: -11 QRSD: 82 T: 47 QT: 411 QTc: 431 Interpretive Statements SINUS RHYTHM POSSIBLE ANTERIOR MYOCARDIAL INFARCTION , PROBABLY OLD [30 ms Q WAVE IN V3/V4, OR R < 0.2 mV IN V4] NONSPECIFIC T-WAVE ABNORMALITY ABNORMAL ECG COMPARED TO ECG 08/15/2021 16:27:40 NO SIGNIFICANT CHANGES Electronically Signed On 07-17-2022 12:08:06 CDT by Jem Reyes M.D.
[2022-07-17 11:47] VITALS: RESP 15; O2SAT 97
[2022-07-17 11:50] LABS: Basophils Absolute Auto 0.1 K/mm3 (0.0-0.1); Basophils Percent Auto 0.6 % (0.2-1.2); Eosinophils Percent Auto 0.5 % (0-4.4); Hematocrit 44.4 % (37.0-47.0); Hemoglobin 13.7 g/dL (12.0-15.0); Immature Granulocyte Absolute 0.03 K/mm3 (0.00-0.031); Immature Granulocyte Percent A 0.4 % (0-0.5); Lymphocytes Percent Auto 37.1 % (18.3-44.2); Mean Corpuscular HGB Conc 30.9 g/dl (32-36); Mean Corpuscular Hemoglobin 31.1 pg (26-34); Mean Corpuscular Volume 100.7 fl (80-100); Mean Platelet Volume 10.8 fl (7.4-10.4); Monocytes Absolute Auto 0.8 K/mm3 (0.1-0.6); Monocytes Percent Auto 10.4 % (2.6-8.5); Platelet Count Result 191 k/mm3 (150-375); Red Blood Count 4.41 M/mm3 (4.2-5.4); Red Cell Distribution Width 13.8 % (11.5-14.5); White Blood Count 7.8 K/mm3 (4.5-10.0)
[2022-07-17] MEDS: SODIUM CHLORIDE 0.9% IV 500 ML 999 ML IV CONT (12:17)
[2022-07-17 12:22] VITALS: BP 99/67; PULSE 64; RESP 17; O2SAT 99
[2022-07-17 12:46] LABS: Lactic Acid Reflex 1.7 mmol/L (0.7-2.0)
[2022-07-17 12:53] LABS: Anion Gap 8 mmol/L (8-16); Blood Urea Nitrogen 26 mg/dL (7-17); Carbon Dioxide 23 mmol/L (22-30); Chloride 107 mmol/L (98-107); Estimated CRCL calculation 19 ml/min; Estimated Glomerular Filt Rate 25; Glucose 121 mg/dL (65-110); Potassium 4.1 mmol/L (3.4-5.0); Sodium 138 mmol/L (137-145)
[2022-07-17 12:54] LABS: Alanine Aminotransferase 35 U/L (6-35); Albumin Level 3.9 g/dL (3.5-5.1); Alkaline Phosphatase 54 U/L (38-126); Aspartate Amino Transferase 94 U/L (14-36); Bilirubin,Total 0.9 mg/dL (0.2-1.3); Calcium 8.9 mg/dL (8.4-10.2); Total Protein 7.1 g/dL (6.3-8.2)
[2022-07-17 13:06] VITALS: BP 144/65; PULSE 60; RESP 16; O2SAT 98
--- NOTE | 2022-07-17 13:11 | ED.GENADULT ---
HPI - General Adult General Chief complaint: Unspecified Stated complaint: Altered mental status Time Seen by Provider: 07/17/22 11:25 Source: patient and family Mode of arrival: wheelchair Limitations: no limitations History of Present Illness HPI narrative: 81-year-old with a history of diabetes, CT scans normal diastolic CHF, GERD was brought in from doctor's office with low blood pressure. As per the son she has been doing fine was at the doctor's office for routine follow-up and was found to have low blood pressure. Patient upon arrival has no complaints except for low back pain patient sitting in the wheelchair. No history of fever or chills. Denies any cough, nausea or vomiting or diarrhea. Related Data Home Medications Medication Instructions Recorded Confirmed pen needle, diabetic 32 gauge x #10 ea 02/12/19 01/15/22 (BD Ultra-Fine Madeline Pen Needle) vitamin B12 2,500 mcg-folic acid 1 tablet PO 3XW 01/25/21 07/17/22 400 mcg disintegrating tablet melatonin 10 mg tablet 10 mg PO QHS 08/21/21 07/17/22 Allergies Allergy/AdvReac Type Severity Reaction Status Date / Time Penicillins Allergy Unknown Unknown Verified 07/17/22 10:16 Review of Systems Review of Systems: All systems reviewed & are unremarkable except as noted in HPI and below Constitutional: Constitutional: Reports no additional constitutional complaints Eyes: Eyes: Reports no additional eye complaints ENT: Reports system reviewed and no additional complaints, except as documented Cardiovascular: Cardiovascular: Reports no additional cardiovascular complaints Respiratory: Respiratory: Reports no additional respiratory complaints Gastrointestinal: Gastrointestinal: Reports no additional gastrointestinal complaints Genitourinary: Genitourinary: Reports no additional female genitourinary complaints Musculoskeletal: Musculoskeletal: Reports as per HPI [facility] Past Medical History Medical History Anxiety Chronic atrial fibrillation CKD (chronic kidney disease) stage 3, GFR 30-59 ml/min Dementia Depression Dyslipidemia Essential (primary) hypertension GERD without esophagitis Hx pulmonary embolism IDDM (insulin dependent diabetes mellitus) Iron deficiency Melena Mild aortic valve regurgitation Mild diastolic dysfunction Unspecified osteoarthritis, unspecified site Vitamin B12 deficiency Family History Family History Other Family history of malignant neoplasm Social History Social History Smoking status: Never smoker Second hand tobacco smoke exposure: No Alcohol intake: never Substance use: never Substance use type: does not use Lack of Transportation: No Lack of Food: Never True Current Housing: I Have Housing Concerned About Future Housing: No Difficulty Paying Gas/Electric Bills: No Difficulty Paying for Meds: No Currently Unemployed: No Education: Don't Know Difficulty w/ Childcare or Family Care: No Living arrangements: with family Additional living arrangements 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 HEAD: Normocephalic, atraumatic. EYES: PERRLA and EOMI. left is enucleated ENT: Nares clear, no rhinorrhea or epistaxis. Mucous membranes moist. NECK: Supple. CHEST: Clear to auscultation. No respiratory distress. HEART: Regular rate and rhythm. No murmur heard. Normal peripheral pulses. ABDOMEN: Soft, nontender, nondistended, normal active bowel sounds. EXTREMITIES: Normal range of motion. No edema. SKIN: Warm, dry, no rash. NEURO: No focal deficits. Alert . PSYCH: Normal mood and
== END 2022-07-17 13:49 | disposition home or self-care (01) ==
PROVIDERS: Emergency Provider Family Medicine; PCP Family Medicine
DX: I95.9 Hypotension, unspecified (principal); E86.0 Dehydration; E11.22 Type 2 diabetes mellitus with diabetic chronic kidney disease; I13.0 Hypertensive heart and chronic kidney disease with heart failure and stage 1 through stage 4 chronic kidney disease, or unspecified chronic kidney disease; N18.30 Chronic kidney disease, stage 3 unspecified; I50.30 Unspecified diastolic (congestive) heart failure; I48.20 Chronic atrial fibrillation, unspecified; F03.90 Unspecified dementia, unspecified severity, without behavioral disturbance, psychotic disturbance, mood disturbance, and anxiety; I35.1 Nonrheumatic aortic (valve) insufficiency; E78.5 Hyperlipidemia, unspecified; E61.1 Iron deficiency; E53.8 Deficiency of other specified B group vitamins; M19.90 Unspecified osteoarthritis, unspecified site; K21.9 Gastro-esophageal reflux disease without esophagitis; F41.9 Anxiety disorder, unspecified; F32.A Depression, unspecified; Z86.711 Personal history of pulmonary embolism; Z79.84 Long term (current) use of oral hypoglycemic drugs; Z79.01 Long term (current) use of anticoagulants; N28.1 Cyst of kidney, acquired; Z90.49 Acquired absence of other specified parts of digestive tract; K57.90 Diverticulosis of intestine, part unspecified, without perforation or abscess without bleeding; R93.3 Abnormal findings on diagnostic imaging of other parts of digestive tract
CPT/HCPCS: 36415; 74177; 80053; 83605; 85025; 93005; 96360; 99284; J7040; Q9967

== ENCOUNTER 2022-11-28 07:55 | Outpatient (NON) | payer MEDICARE, SELFPAY ==
[2022-11-28 19:01] LABS: Appearance Urine Cloudy (Clear); Bacteria Urine 4+ /hpf; Bilirubin Urine Negative (Negative); Blood Urine Trace (Negative); Color Urine Yellow (Yellow); Glucose Urine UA Negative (Negative); Ketones Urine Negative (Negative); Leukocyte Esterase Ur 3+ LEU/UL (NEGATIVE); Nitrate Urine Negative (Negative); Non Pathogenic Casts 0-2; Protein Urine Negative (Negative); RBC Urine 21-50 /hpf (0-2); Specific Grav Ur 1.013 (1.001-1.035); Squamous Epithelial Cell Urine Occasional /hpf (Few); Urobilinogen Urine 0.2 mg/dL (<2.0)
[2022-11-28 19:05] LABS: Add Urine Microscopic? YES
== END 2022-11-28 07:56 | disposition home or self-care (01) ==
PROVIDERS: PCP Family Medicine; Visit Provider Family Medicine
DX: N39.0 Urinary tract infection, site not specified (principal)
CPT/HCPCS: 81001; 87086; 87088

== ENCOUNTER 2022-12-03 09:48 | Emergency (ER) | payer MEDICARE, SELFPAY ==
--- NOTE | ~2022-12-03 | CT_ITS ---
EXAMINATION: CT brain wo con DATE: 12/03/2022 10:55 INDICATION: Altered mental status. Headache. TECHNIQUE: Computed tomography (CT) of the head was performed without intravenous contrast. The dose- length product was 605.33 mGy-cm. COMPARISON: CT dated 08/15/2021 FINDINGS: Generalized atrophy. There are scattered mild periventricular and subcortical white matter changes, most likely related to small vessel ischemic disease (microangiopathy). No ventriculomegaly or midline shift. There is mucosal thickening of the left maxillary, right sphenoid sinuses with muco periosteal reaction, consistent with chronic sinusitis. Mastoids are pneumatized. No depressed skull fractures. No acute infarction, hemorrhage, mass or mass effect. IMPRESSION: 1. No acute intracranial abnormality. 2: Chronic sinusitis. 3: Chronic age-related findings. Reviewed, dictated and finalized at location L.
--- NOTE | ~2022-12-03 | XR_ITS ---
EXAMINATION: XR chest 1V 12/03/2022 11:01 INDICATION: Altered mental status PROCEDURE: AP portable chest COMPARISON: Comparison to multiple prior studies sequentially, with oldest reviewed study dated 09/22. FINDINGS: The lungs are clear. The cardiomediastinal silhouette is within normal limits. There are no pleural effusions. There is no pneumothorax suspected. There is atherosclerosis and ectasia of t he aorta. IMPRESSION: 1: NO ACUTE CARDIOPULMONARY DISEASE. Reviewed, dictated and finalized at location L.
[2022-12-03 09:50] VITALS: BP 105/49; PULSE 108; RESP 20; TEMP 36.4; O2SAT 96
--- NOTE | 2022-12-03 09:51 | ECG_ITS ---
Measurements Intervals [place] Rate: 108 P: -54 SC: 105 QRS: -33 QRSD: 84 T: 42 QT: 328 QTc: 441 Interpretive Statements SINUS TACHYCARDIA WITH SHORT SC INTERVAL WITH OCCASIONAL SUPRAVENTRICULAR PREMATURE COMPLEXES POSSIBLE OLD ANTERIOR MYOCARDIAL INFARCTION POSSIBLE OLD INFERIOR MYOCARDIAL INFARCTION COMPARED TO ECG 07/17/2022 11:26:31 SINUS TACHYCARDIA NOW PRESENT Electronically Signed On 12-03-2022 19:55:24 CDT by Edelmira Sandhu M.D.
[2022-12-03 10:06] VITALS: PULSE 92
[2022-12-03 10:27] LABS: Basophils Absolute Auto 0.1 K/mm3 (0.0-0.1); Basophils Percent Auto 0.3 % (0.2-1.2); Eosinophils Absolute Auto 0.2 K/mm3 (0-0.3); Eosinophils Percent Auto 1.1 % (0-4.4); Hematocrit 43.3 % (37.0-47.0); Hemoglobin 13.5 g/dL (12.0-15.0); Immature Granulocyte Absolute 0.09 K/mm3 (0.00-0.031); Immature Granulocyte Percent A 0.6 % (0-0.5); Lymphocytes Percent Auto 17.2 % (18.3-44.2); Mean Corpuscular HGB Conc 31.2 g/dl (32-36); Mean Corpuscular Hemoglobin 31.4 pg (26-34); Mean Corpuscular Volume 100.7 fl (80-100); Monocytes Absolute Auto 1.3 K/mm3 (0.1-0.6); Monocytes Percent Auto 7.9 % (2.6-8.5); Neutrophils Absolute Auto 11.5 K/mm3 (1.3-6.7); Neutrophils Percent Auto 72.9 % (45.5-73.1); Platelet Count Result 266 k/mm3 (150-375); Red Cell Distribution Width 12.7 % (11.5-14.5); White Blood Count 15.7 K/mm3 (4.5-10.0)
[2022-12-03 10:36] LABS: Alanine Aminotransferase 19 U/L (6-35); Albumin Level 3.9 g/dL (3.5-5.1); Alkaline Phosphatase 55 U/L (38-126); Anion Gap 9 mmol/L (8-16); Aspartate Amino Transferase 31 U/L (14-36); Bilirubin,Total 0.9 mg/dL (0.2-1.3); Blood Urea Nitrogen 28 mg/dL (7-17); Calcium 9.5 mg/dL (8.4-10.2); Carbon Dioxide 21 mmol/L (22-30); Chloride 107 mmol/L (98-107); Estimated Glomerular Filt Rate 36; Glucose 271 mg/dL (65-110); INR 1.1; Potassium 4.3 mmol/L (3.4-5.0); Prothrombin Time 14.5 Seconds (11.1-14.7); Sodium 137 mmol/L (137-145)
[2022-12-03 10:37] LABS: Glucose Point of Care 265 mg/dl (65-105)
[2022-12-03 10:38] LABS: Appearance Urine Clear (Clear); Bacteria Urine None Seen /hpf; Bilirubin Urine Negative (Negative); Blood Urine Negative (Negative); Color Urine Yellow (Yellow); Glucose Urine UA Negative (Negative); Ketones Urine Negative (Negative); Leukocyte Esterase Ur Trace LEU/UL (Negative); Nitrate Urine Negative (Negative); Protein Urine Negative (Negative); RBC Urine 0-2 /hpf (0-2); Specific Grav Ur 1.017 (1.001-1.035); Squamous Epithelial Cell Urine None seen /hpf (Few); Urobilinogen Urine 0.2 mg/dL (<2.0); WBC Urine 0-5 /hpf; pH Urine 6.5 (5.0-9.0)
[2022-12-03 10:45] LABS: Add Urine Microscopic? YES
[2022-12-03 10:48] LABS: SARS-CoV-2 RNA PCR Negative (Negative)
[2022-12-03 12:06] VITALS: BP 96/80; PULSE 84; RESP 17; O2SAT 100
--- NOTE | 2022-12-03 12:16 | ED.AMS ---
HPI - Altered Mental Status General Chief Complaint: Altered Mental Status Stated Complaint: increasing confusion, low bp Time Seen by Provider: 12/03/22 11:15 History of Present Illness HPI narrative: 82-year-old female present emergency department for evaluation of altered mental status. Caregiver states that this morning the patient was more confused than her typical baseline. Upon arrival to the ED patient is back to her baseline. Patient denies any complaints at this time. Patient's is requesting that the patient be discharged back to home. Related Data Home Medications Medication Instructions Recorded Confirmed pen needle, diabetic 32 gauge x #10 ea 02/12/19 01/15/22 (BD Ultra-Fine Madeline Pen Needle) vitamin B12 2,500 mcg-folic acid 1 tablet PO 3XW 01/25/21 07/17/22 400 mcg disintegrating tablet melatonin 10 mg tablet 10 mg PO QHS 08/21/21 07/17/22 Allergies Allergy/AdvReac Type Severity Reaction Status Date / Time Penicillins Allergy Unknown Unknown Verified 12/03/22 10:07 Review of Systems Review of Systems: All systems reviewed & are unremarkable except as noted in HPI and below PMFSH Past Medical History Medical History Anxiety Chronic atrial fibrillation CKD (chronic kidney disease) stage 3, GFR 30-59 ml/min Dementia Depression Dyslipidemia Essential (primary) hypertension GERD without esophagitis Hx pulmonary embolism IDDM (insulin dependent diabetes mellitus) Iron deficiency Melena Mild aortic valve regurgitation Mild diastolic dysfunction Unspecified osteoarthritis, unspecified site Vitamin B12 deficiency Family History Family History Other Family history of malignant neoplasm Social History Social History Smoking status: Never smoker Second hand tobacco smoke exposure: No Alcohol intake: never Substance use: never Substance use type: does not use Lack of Transportation: No Lack of Food: Never True Current Housing: I Have Housing Concerned About Future Housing: No Difficulty Paying Gas/Electric Bills: No Difficulty Paying for Meds: No Currently Unemployed: No Education: Don't Know Difficulty w/ Childcare or Family Care: No Living arrangements: with family Additional 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 HEAD: normocephalic, atraumatic. EYES: PERRLA/EOMI, conjunctivae clear. NOSE: Normal no drainage EARS:TMS clear with good light reflex. THROAT: Pharynx clear, no exudate. NECK: Supple. No adenopathy, no masses. RESPIRATORY: Airway patent, respirations nonlabored. Clear to auscultation bilaterally, no rales, rhonchi, wheezing. CARDIOVASCULAR: Regular rate and rhythm without murmurs rubs or gallops. ABDOMINAL: Soft, nontender, nondistended, normal bowel sounds MUSCULOSKELETAL: Moves all extremities. Strength/ROM intact, No edema, No calf tenderness. NEURO: Alert. Cranial nerves II through XII intact. Grossly intact SKIN: Warm, dry. Normal Color Course Course Emergency Course: Patient is afebrile but does have a leukocytosis of 15.7 hemoglobin is stable at 13.5. No new abnormalities on her CMP UA was negative for infection. Patient was negative for COVID. Chest x-ray shows no acute cardiopulmonary normality and head CT showed no acute abnormality. Patient's family and caregiver were updated on results of the work-up and patient's family is requesting the patient be discharged back to the care facility. At time of discharge patient denies any complaints Vital Signs Vital signs: Vital Signs Temperature
[2022-12-03 12:34] VITALS: BP 96/80
== END 2022-12-03 12:39 | disposition home or self-care (01) ==
PROVIDERS: Emergency Provider Emergency Medicine; PCP Family Medicine
DX: F03.90 Unspecified dementia, unspecified severity, without behavioral disturbance, psychotic disturbance, mood disturbance, and anxiety (principal); F41.9 Anxiety disorder, unspecified; I48.91 Unspecified atrial fibrillation; I12.9 Hypertensive chronic kidney disease with stage 1 through stage 4 chronic kidney disease, or unspecified chronic kidney disease; E11.22 Type 2 diabetes mellitus with diabetic chronic kidney disease; N18.30 Chronic kidney disease, stage 3 unspecified; Z79.4 Long term (current) use of insulin; F32.A Depression, unspecified; E78.5 Hyperlipidemia, unspecified; K21.9 Gastro-esophageal reflux disease without esophagitis; Z86.711 Personal history of pulmonary embolism
CPT/HCPCS: 36415; 70450; 71045; 80053; 81001; 82948; 85025; 85610; 85730; 87635; 93005; 99284

== ENCOUNTER 2022-12-16 09:00 | Outpatient (CLI) | payer MEDICARE, SELFPAY ==
[2022-12-16 09:59] LABS: Basophils Absolute Auto 0.1 K/mm3 (0.0-0.1); Basophils Percent Auto 0.9 % (0.2-1.2); Eosinophils Absolute Auto 0.2 K/mm3 (0-0.3); Eosinophils Percent Auto 1.9 % (0-4.4); Hematocrit 39.4 % (37.0-47.0); Hemoglobin 12.1 g/dL (12.0-15.0); Immature Granulocyte Absolute 0.08 K/mm3 (0.00-0.031); Immature Granulocyte Percent A 0.7 % (0-0.5); Lymphocytes Absolute Auto 2.17 K/mm3 (0.9-3.2); Lymphocytes Percent Auto 19.2 % (18.3-44.2); Mean Corpuscular HGB Conc 30.7 g/dl (32-36); Mean Corpuscular Hemoglobin 31.3 pg (26-34); Mean Corpuscular Volume 102.1 fl (80-100); Mean Platelet Volume 10.5 fl (7.4-10.4); Monocytes Absolute Auto 0.6 K/mm3 (0.1-0.6); Monocytes Percent Auto 5.4 % (2.6-8.5); Neutrophils Absolute Auto 8.1 K/mm3 (1.3-6.7); Neutrophils Percent Auto 71.9 % (45.5-73.1); Platelet Count Result 281 k/mm3 (150-375); Red Blood Count 3.86 M/mm3 (4.2-5.4); White Blood Count 11.3 K/mm3 (4.5-10.0)
== END 2022-12-16 09:01 | disposition home or self-care (01) ==
PROVIDERS: PCP Family Medicine; Visit Provider Internal Medicine Cardiovascular Disease
DX: D72.825 Bandemia (principal)
CPT/HCPCS: 36415; 85025; 87040

== ENCOUNTER 2023-01-10 08:48 | Outpatient (NON) | payer MEDICARE, SELFPAY ==
[2023-01-10 13:01] LABS: Appearance Urine Clear (Clear); Bacteria Urine None Seen /hpf; Bilirubin Urine Negative (Negative); Blood Urine Negative (Negative); Color Urine Yellow (Yellow); Glucose Urine UA Negative (Negative); Ketones Urine Negative (Negative); Leukocyte Esterase Ur Trace LEU/UL (Negative); Nitrate Urine Negative (Negative); Non Pathogenic Casts 0-2; Protein Urine Negative (Negative); RBC Urine 0-2 /hpf (0-2); Squamous Epithelial Cell Urine None seen /hpf (Few); Urobilinogen Urine 0.2 mg/dL (<2.0); WBC Urine 0-5 /hpf; pH Urine 7.5 (5.0-9.0)
[2023-01-10 13:21] LABS: Add Urine Microscopic? YES
== END 2023-01-10 08:49 | disposition home or self-care (01) ==
PROVIDERS: PCP Family Medicine; Visit Provider Family Medicine
DX: R30.0 Dysuria (principal)
CPT/HCPCS: 81001

== ENCOUNTER → 2023-02-04 10:32 | Outpatient (CLI) | payer MEDICARE, SELFPAY ==
--- NOTE | ~2023-02-04 | XR_ITS ---
EXAMINATION: XR ankle RT min 3V, XR foot RT min 3V DATE: 02/04/2023 11:22 INDICATION: Nontraumatic right foot and ankle pain and swelling TECHNIQUE: 1. Anteroposterior, mortise, additional oblique and lateral view of the right ankle were obtained. 2. Dorsoplantar, two oblique and lateral views of the right foot were obtained. COMPARISON: None. FINDINGS: Alignment of the right foot and ankle is normal. No fracture or osteochondral lesion. Polyarticular o steoarthritis, moderate severity at the first metatarsophalangeal joint and mild at many of the remai rebecca joints at the right foot and ankle. Moderate-sized plantar calcaneal spur and small Achilles mayra caneal spur. No cortical erosions or periosteal reaction. No ankle joint effusion. The soft tissues a re unremarkable. IMPRESSION: 1. 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 No acute osseous abnormality. Reviewed, dictated and finalized at location A. K PREPARER IMPRESSION: 1. 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 No acute osseous abnormality.
== END ==
PROVIDERS: PCP Family Medicine; Visit Provider Physician Assistant
DX: M19.071 Primary osteoarthritis, right ankle and foot (principal)
CPT/HCPCS: 73610; 73630

== ENCOUNTER 2023-04-18 09:10 | Outpatient (CLI) | payer MEDICARE, SELFPAY ==
[2023-04-22 12:53] LABS: Red Blood Cell Folate 497 ng/mL RBC (>280)
[2023-04-25 00:11] LABS: Vitamin D 1,25 (OH)2 Total 29 pg/mL (18-72); Vitamin D2 1,25 (OH)2 <8 pg/mL; Vitamin D3 1,25 (OH)2 29 pg/mL
== END 2023-04-18 09:11 | disposition home or self-care (01) ==
PROVIDERS: PCP Family Medicine; Visit Provider Psychiatry & Neurology Neurology
DX: G30.9 Alzheimer's disease, unspecified (principal); F02.80 Dementia in other diseases classified elsewhere, unspecified severity, without behavioral disturbance, psychotic disturbance, mood disturbance, and anxiety; R27.0 Ataxia, unspecified; E55.9 Vitamin D deficiency, unspecified
CPT/HCPCS: 36415; 82652; 82747; 84443

== ENCOUNTER 2023-05-14 11:51 | Outpatient (CLI) | payer MEDICARE, SELFPAY ==
[2023-05-14 21:07] LABS: Alanine Aminotransferase 18 U/L (6-35); Albumin Level 3.9 g/dL (3.5-5.1); Alkaline Phosphatase 58 U/L (38-126); Anion Gap 10 mmol/L (4-12); Aspartate Amino Transferase 39 U/L (14-36); Bilirubin,Total 0.8 mg/dL (0.2-1.3); Blood Urea Nitrogen 28 mg/dL (7-17); Calcium 9.9 mg/dL (8.4-10.2); Carbon Dioxide 15 mmol/L (22-30); Chloride 114 mmol/L (98-107); Estimated Glomerular Filt Rate 36; Glucose 183 mg/dL (65-110); Potassium 4.2 mmol/L (3.4-5.0); Sodium 139 mmol/L (137-145)
[2023-05-14 23:57] LABS: Hemoglobin A1C 7.1 % (<5.7)
== END 2023-05-14 11:52 | disposition home or self-care (01) ==
LOC: ANHGOSHLAB 11:52
PROVIDERS: PCP Family Medicine; Visit Provider Family Medicine
DX: I10 Essential (primary) hypertension (principal); E11.9 Type 2 diabetes mellitus without complications
CPT/HCPCS: 36415; 80053; 83036

== ENCOUNTER 2023-05-14 12:02 | Outpatient (CLI) | payer MEDICARE, SELFPAY ==
--- NOTE | ~2023-05-14 | XR_ITS ---
Right Knee Technique: AP, lateral, and sunrise views were obtained. Clinical History: Pain Findings: No fracture or dislocation is seen. There is lateral compartment narrowing. Soft tissues ar e unremarkable. No joint effusion is seen. Impression: Lateral compartment narrowing, likely on a degenerative basis. Reviewed, dictated and finalized at location . Impression: Lateral compartment narrowing, likely on a degenerative basis.
== END 2023-05-14 12:03 ==
PROVIDERS: PCP Family Medicine; Visit Provider Family Medicine
DX: M25.861 Other specified joint disorders, right knee (principal); M79.671 Pain in right foot
CPT/HCPCS: 73564; 73630

== ENCOUNTER 2023-06-19 12:41 | Outpatient (NON) | payer MEDICARE, SELFPAY ==
[2023-06-19 13:34] LABS: Alanine Aminotransferase 107 U/L (6-35); Albumin Level 3.5 g/dL (3.5-5.1); Alkaline Phosphatase 112 U/L (38-126); Anion Gap 8 mmol/L (4-12); Aspartate Amino Transferase 218 U/L (14-36); Bilirubin,Total 1.3 mg/dL (0.2-1.3); Blood Urea Nitrogen 21 mg/dL (7-17); Calcium 9.1 mg/dL (8.4-10.2); Carbon Dioxide 19 mmol/L (22-30); Chloride 109 mmol/L (98-107); Estimated Glomerular Filt Rate 39; Glucose 123 mg/dL (65-110); Potassium 3.8 mmol/L (3.4-5.0); Sodium 136 mmol/L (137-145)
== END 2023-06-19 12:42 | disposition home or self-care (01) ==
LOC: HOME HLTH 12:46
PROVIDERS: PCP Family Medicine; Visit Provider Family Medicine
DX: M19.071 Primary osteoarthritis, right ankle and foot (principal); G30.9 Alzheimer's disease, unspecified; F02.80 Dementia in other diseases classified elsewhere, unspecified severity, without behavioral disturbance, psychotic disturbance, mood disturbance, and anxiety; E11.9 Type 2 diabetes mellitus without complications
CPT/HCPCS: 80053

== ENCOUNTER 2023-06-25 08:41 | Outpatient (CLI) | payer MEDICARE, SELFPAY ==
[2023-06-25 20:06] LABS: Alanine Aminotransferase 37 U/L (6-35); Albumin Level 3.6 g/dL (3.5-5.1); Alkaline Phosphatase 116 U/L (38-126); Anion Gap 12 mmol/L (4-12); Aspartate Amino Transferase 58 U/L (14-36); Bilirubin,Total 1.4 mg/dL (0.2-1.3); Blood Urea Nitrogen 31 mg/dL (7-17); Calcium 9.4 mg/dL (8.4-10.2); Carbon Dioxide 16 mmol/L (22-30); Chloride 109 mmol/L (98-107); Estimated Glomerular Filt Rate 47; Glucose 160 mg/dL (65-110); Potassium 4.2 mmol/L (3.4-5.0); Sodium 137 mmol/L (137-145)
== END 2023-06-25 08:42 | disposition home or self-care (01) ==
LOC: ANHGOSHLAB 08:44
PROVIDERS: PCP Family Medicine; Visit Provider Nurse Practitioner
DX: R19.7 Diarrhea, unspecified (principal)
CPT/HCPCS: 36415; 80053

== ENCOUNTER 2023-06-25 09:03 | Outpatient (CLI) | payer MEDICARE, SELFPAY ==
--- NOTE | ~2023-06-25 | US_ITS ---
Abdominal Sonogram: Real-time sonographic imaging of the abdomen was performed. Clinical History: Abnormal serum enzyme levels Findings: The liver appears normal with no evidence of mass lesion or bile duct dilatation. Main por juice vein demonstrates normal direction of flow. The spleen is normal in size without evidence of foca l lesion. The gallbladder is absent, compatible prior cholecystectomy. The common bile duct measures 14 mm. The visualized pancreas, aorta, and IVC are unremarkable. The right kidney measures 8.3 cm in length and the left kidney measures 9.6 cm. There is no hydronephrosis or renal calculus. Impression: Dilated common bile duct. This is possibly related to prior cholecystectomy. Correlate clinically. Reviewed, dictated and finalized at location . Impression: Dilated common bile duct. This is possibly related to prior cholecystectomy. Co rrelate clinically.
== END 2023-06-25 09:04 ==
LOC: GOSHIMG 09:04
PROVIDERS: PCP Family Medicine; Visit Provider Nurse Practitioner
DX: R74.8 Abnormal levels of other serum enzymes (principal)
CPT/HCPCS: 76700

== ENCOUNTER 2023-07-06 14:04 | Observation (INO) | payer MEDICARE, SELFPAY ==
[2023-07-06 14:00] VITALS: BP 87/51; PULSE 68; RESP 18; TEMP 36.2; O2SAT 95
[2023-07-06 14:07] VITALS: BP 87/51; PULSE 66; RESP 18; TEMP 36.3; O2SAT 96
[2023-07-06 15:00] VITALS: BP 96/50; PULSE 66; RESP 18; O2SAT 95
--- NOTE | 2023-07-06 15:26 | ECG_ITS ---
SEE SCANNED COPY FOR CONFIRMED REPORT MTDD
--- NOTE | 2023-07-06 17:21 | ED.GENADULT ---
HPI - General Adult General Chief complaint: Skin/Abscess/Foreign Body Stated complaint: wounds Time Seen by Provider: 07/06/23 15:07 History of Present Illness HPI narrative: Patient is an 82-year-old female with history of AFib, CKD, depression, hypertension, diabetes here with bed sores and deconditioning. Per family patient is currently living at home with her with 24 hour healthcare. states that she has been declining for quite some time. The home health aide that I spoke to over the phone notes that there is many times where she will go several days without waking up and they have significant difficulty getting her to eat or take any fluids by mouth. This has progressively worsened over the last 4 weeks. states that he 1st saw picture of her bed sores today and this prompted him to call an ambulance and have her brought into the emergency department for evaluation. The nursing staff at his home states that the sores have been present for several months. She is currently living on their couch and does not have any hospital bed and this makes it very difficult for them to continue with her care. She has been having progressive excessive diarrhea. states the did try to call [facility] today but did not get a hold of any assistance because they noted they needed a physician referral in order to come and evaluate the patient. Related Data Home Medications Medication Instructions Recorded Confirmed pen needle, diabetic 32 gauge x #10 ea 02/12/19 07/03/23 (BD Ultra-Fine Madeline Pen Needle) vitamin B12 2,500 mcg-folic acid 1 tablet PO 3XW 01/25/21 07/03/23 400 mcg disintegrating tablet melatonin 10 mg tablet 10 mg PO QHS 08/21/21 07/03/23 insulin glargine 100 unit/mL (3 45 unit subcut QAM 05/14/23 07/03/23 mL) subcutaneous pen (Lantus Solostar U-100 Insulin) memantine 10 mg tablet 10 mg PO BID 05/14/23 07/03/23 Allergies Allergy/AdvReac Type Severity Reaction Status Date / Time Penicillins Allergy Unknown Unknown Verified 06/09/23 09:56 Review of Systems Review of Systems: ROS unobtainable: Yes unobtainable due to mental status PMFSH Past Medical History Medical History Anxiety Ataxia Chronic atrial fibrillation CKD (chronic kidney disease) stage 3, GFR 30-59 ml/min Dementia Depression Dyslipidemia Essential (primary) hypertension FH: cholecystectomy GERD without esophagitis Hx pulmonary embolism IDDM (insulin dependent diabetes mellitus) Iron deficiency Melena Mild aortic valve regurgitation Mild diastolic dysfunction Unspecified osteoarthritis, unspecified site Vitamin B12 deficiency Surgical History Surgical History H/O hernia repair H/O total hip arthroplasty Hx of LASIK Family History Family History Father No problems noted. Mother No problems noted. Sibling Heart disease Hypertension Other Family history of malignant neoplasm Social History Social History Smoking status: Never smoker Second hand tobacco smoke exposure: Yes Alcohol intake: never Substance use: never Substance use type: does not use Lack of Transportation: No Lack of Food: Never True Current Housing: I Have Housing Concerned About Future Housing: No Difficulty Paying Gas/Electric Bills: No Difficulty Paying for Meds: No Currently Unemployed: No Education: High School Diploma/GED Difficulty w/ Childcare or Family Care: No Living arrangements: with family Additional living arrangements 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 , 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 Gender identity (if verbalized by the patient)
[2023-07-06 18:03] LABS: Basophils Absolute Auto 0.1 K/mm3 (0.0-0.1); Basophils Percent Auto 0.5 % (0.2-1.2); Eosinophils Absolute Auto 0.1 K/mm3 (0-0.3); Hematocrit 39.6 % (37.0-47.0); Hemoglobin 12.6 g/dL (12.0-15.0); Immature Granulocyte Absolute 0.17 K/mm3 (0.00-0.031); Immature Granulocyte Percent A 1.3 % (0-0.5); Lymphocytes Absolute Auto 2.74 K/mm3 (0.9-3.2); Lymphocytes Percent Auto 20.5 % (18.3-44.2); Mean Corpuscular HGB Conc 31.8 g/dl (32-36); Mean Corpuscular Hemoglobin 32.1 pg (26-34); Mean Corpuscular Volume 100.8 fl (80-100); Mean Platelet Volume 10.5 fl (7.4-10.4); Monocytes Absolute Auto 1.1 K/mm3 (0.1-0.6); Monocytes Percent Auto 8.2 % (2.6-8.5); Neutrophils Absolute Auto 9.1 K/mm3 (1.3-6.7); Neutrophils Percent Auto 68.5 % (45.5-73.1); Platelet Count Result 366 k/mm3 (150-375); Red Blood Count 3.93 M/mm3 (4.2-5.4); Red Cell Distribution Width 14.2 % (11.5-14.5); White Blood Count 13.4 K/mm3 (4.5-10.0)
--- NOTE | 2023-07-06 18:07 | PCCCNOTE ---
Called for hospice referral. Pt unable to participate in decision making. Spoke with son (Jovan Verdugo Jr [phone]) at bedside and spoke with (Jovan Verdugo [phone]) regarding hospice. Decision to move forward with [facility]. Hospice contacted and information sent. Hospice to contact and arrange meeting time tomorrow Friday to evaluate and sign up.
[2023-07-06 18:13] LABS: Lactic Acid Reflex 1.3 mmol/L (0.7-2.0)
[2023-07-06 18:14] LABS: Partial Thromboplastin Time 31.1 Seconds (22.3-36.8)
[2023-07-06 18:15] LABS: INR 1.3; Prothrombin Time 16.8 Seconds (11.1-14.7)
[2023-07-06 18:17] LABS: Alanine Aminotransferase 17 U/L (6-35); Albumin Level 2.9 g/dL (3.5-5.1); Alkaline Phosphatase 75 U/L (38-126); Anion Gap 6 mmol/L (4-12); Aspartate Amino Transferase 28 U/L (14-36); Bilirubin,Total 0.6 mg/dL (0.2-1.3); Blood Urea Nitrogen 21 mg/dL (7-17); CRP 2.9 mg/dL (<1.0); Carbon Dioxide 21 mmol/L (22-30); Chloride 111 mmol/L (98-107); Estimated CRCL calculation 41 ml/min; Estimated Glomerular Filt Rate 53; Glucose 98 mg/dL (65-110); Potassium 3.9 mmol/L (3.4-5.0); Sodium 138 mmol/L (137-145)
[2023-07-06] MEDS: LACTATED RINGERS 1,000 ML 999 ML IV CONT (19:03)
[2023-07-06 19:05] VITALS: BP 94/51; PULSE 82; RESP 14; O2SAT 93
--- NOTE | 2023-07-06 19:51 | ADMGEN ---
This patient, Suzy Verdugo, was admitted to Medical Room 247-. Patient/family oriented to hospital policies and general routines including ID bracelet, bed and alarms, visiting hours, pain management, procedures, bathroom and other care routines, personal items, smoking policy, room service/diet, and visiting hours. Information on how to activate the Rapid Response Team has been discussed. Patient/Family are encouraged to report perceived risks to care and to ask questions if they do not understand what they are told or what they should do.
[2023-07-06 20:18] VITALS: BP 105/54; PULSE 72; RESP 16; TEMP 35.8; O2SAT 92
--- NOTE | 2023-07-06 22:43 | PM.IMHP ---
H&P: HPI History of Present Illness Date/Time: 07/06/23 21:30 Chief Complaint: Wounds. Narrative: This is an 82-year-old female with dementia, hypertension, chronic kidney disease, insulin-dependent, atrial fibrillation, and other comorbidities who presented to the emergency department via EMS from home for evaluation after her discovered wounds on her posterior. The following history is obtained from her family as she is essentially nonverbal however she does seem to nod and shake her head appropriately on occasion. The patient lives at home with her and they have 24 hour help however the caregivers are having increasing difficulty caring for the patient as she is requiring more and more help. Over the last month or so she has declined significantly and is not unusual for her to go several days without waking up and they have difficulties getting her to eat and drink. was not aware that she had in the wounds and he became concerned when he saw them today. The ED physician had lengthy conversations with the patient's family regarding goals for her care and they agree that hospice would be appropriate for the patient and ideally they would like to take her home on hospice. [facility] was contacted and it is my understanding that they will evaluate the patient tomorrow and hopefully all of the equipment that she will need will be at her home before discharge. In the interim she is being admitted for hydration as she looks quite dry. At the time my evaluation she is alert and shakes her head no when asked if she is having any pain or shortness of breath. She nodded her head yes when asked if she was comfortable and if she would like me to cover her with the blanket. She did not make any other gestures when posed other questions. Review of Systems Review of Systems: Unable to obtain given clinical condition. [facility], [facility] Past Medical History Medical History (Updated 07/06/23 @ 22:59 by Vanessa Bailey PA-C) Anxiety Chronic anticoagulation Chronic atrial fibrillation Chronic kidney disease, stage 3 Dementia Depression Dyslipidemia Essential (primary) hypertension GERD without esophagitis Insulin dependent type 2 diabetes mellitus Iron deficiency Mild aortic valve regurgitation Mild diastolic dysfunction Pulmonary embolism Unspecified osteoarthritis, unspecified site Vitamin B12 deficiency Surgical History Surgical History (Updated 07/06/23 @ 22:52 by Vanessa Bailey PA-C) History of cholecystectomy History of hernia repair History of laser assisted in situ keratomileusis History of right hip replacement Family History Family History Father No problems noted. Mother No problems noted. Sibling Heart disease Hypertension Other Family history of malignant neoplasm Social History Social History (Updated 07/06/23 @ 22:53 by Vanessa Bailey PA-C) Social History: Surrogate medical decision maker: Jovan Verdugo, spouse. Code status: Do not resuscitate. Smoking status: Never smoker Second hand tobacco smoke exposure: Yes Alcohol intake: never Substance use: never Substance use type: does not use Lack of Transportation: No Lack of Food: Never True Current Housing: I Have Housing Concerned About Future Housing: No Difficulty Paying Gas/Electric Bills: No Difficulty Paying for Meds: No Currently Unemployed: No Education: High School Diploma/GED Difficulty w/ Childcare or Family Care: No Living arrangements: with family Additional living arrangements comments: Lives with spouse in [place]. 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 Spiritual care concerns: No Agree to blood products: Yes Meds Home Medications and Allergies Home Medications Medication Instructions Recorded Confirm
[2023-07-06] MEDS: LACTATED RINGERS 1,000 ML 85 ML IV CONT (23:57)
[2023-07-07 04:30] VITALS: BP 98/48; PULSE 84; RESP 14; TEMP 36.3; O2SAT 94
[2023-07-07 08:19] VITALS: O2SAT 93
[2023-07-07 09:02] VITALS: RESP 14; O2SAT 93
[2023-07-07] MEDS: LACTATED RINGERS 1,000 ML 85 ML IV CONT (11:16)
--- NOTE | 2023-07-07 13:16 | PM.DS ---
DS: Admitting Diagnosis Discharge Date 07/07/23 Admitting Diagnosis Dehydration, hospice care DS: Discharge Diagnosis Discharge Diagnosis (1) End of life care: Code(s): Z51.5 - Encounter for palliative care Status: Acute (2) Dehydration: Code(s): E86.0 - Dehydration Status: Acute (3) Pressure ulcer: Code(s): L89.90 - Pressure ulcer of unspecified site, unspecified stage Status: Acute (4) Dementia: Code(s): F03.90 - Unspecified dementia, unspecified severity, without behavioral disturbance, psychotic disturbance, mood disturbance, and anxiety Status: Acute (5) Insulin dependent type 2 diabetes mellitus: Code(s): E11.9 - Type 2 diabetes mellitus without complications; Z79.4 - 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 The patient lives at home with her and they have 24 hour help however the caregivers are having increasing difficulty caring for the patient as she is requiring more and more help. Over the last month or so she has declined significantly and is not unusual for her to go several days without waking up and they have difficulties getting her to eat and drink. was not aware that she had in the wounds and he became concerned when he saw them today. The ED physician had lengthy conversations with the patient's family regarding goals for her care and they agree that hospice would be appropriate for the patient and ideally they would like to take her home on hospice.? hospice was called and stated they will meet the family at their home with the equipment readily available. Will discharge the patient back home to meet with hospice care. Time Spent with Patient Time attestation: Total time spent providing and/or coordinating discharge services: Exam Narrative: GENERAL: Comfortable, no acute distress RESPIRATORY: clear to auscultation, no increased respiratory effort CARDIO: Regular rate and rhythm GI: soft, nontender, bowel sounds present EXTREMITIES: No lower extremity edema DS: Data Data Completed and Pending Labs on day of discharge: Labs from last 24 hours 07/06/23 17:49 WBC 13.4 H RBC 3.93 L Hgb 12.6 Hct 39.6 MCV 100.8 H MCH 32.1 MCHC 31.8 L RDW 14.2 Plt Count 366 MPV 10.5 H Immature Gran % (Auto) 1.3 H Neut % (Auto) 68.5 Lymph % (Auto) 20.5 Mcminn % (Auto) 8.2 Eos % (Auto) 1.0 Baso % (Auto) 0.5 Lymph # (Auto) 2.74 Mcminn # (Auto) 1.1 H Eos # (Auto) 0.1 Baso # (Auto) 0.1 Abs Immat Gran (auto) 0.17 H Absolute Neuts (auto) 9.1 H Absolute Nucleated RBC 0.000 Nucleated RBC % 0.0 PT 16.8 H INR 1.3 APTT 31.1 Sodium 138 Potassium 3.9 Chloride 111 H Carbon Dioxide 21 L Anion Gap 6 BUN 21 H D Creatinine 1.00 Estim Creat Clear Calc 41 Estimated GFR 53 L Glucose 98 Lactic Acid 1.3 Calcium 9.0 Total Bilirubin 0.6 AST 28 ALT 17 Alkaline Phosphatase 75 C-Reactive Protein 2.9 H Total Protein 6.0 L Albumin 2.9 L Discharge Plan Discharge Discharging Clinician: Oriana Booth Patient Disposition: Hospice - Home Activity: as tolerated and no preference Diet: as tolerated Discharge Instructions: discharge home to hospice. medications per hospice company. Patient Instructions: Apixaban (By mouth), Safe Use of Anticoagulants (DC) Stand Alone Forms: General Discharge Information Follow-up/Referrals: Syl Loyola MD [Primary Care Provider] - Discharge Medications: Continued vitamin [id number]
[2023-07-07 14:00] VITALS: BP 123/69; PULSE 70; RESP 14; O2SAT 97
== END 2023-07-07 15:10 | disposition hospice, home (50) ==
LOC: ANHED 15:07 → ANH2MED 18:48
PROVIDERS: Admitting Provider Family Medicine; Emergency Provider Student in an Organized Health Care Education/Training Program; PCP Family Medicine; Visit Provider Family Medicine
DX: Z51.5 Encounter for palliative care (principal); E86.0 Dehydration; L89.152 Pressure ulcer of sacral region, stage 2; I95.9 Hypotension, unspecified; R62.7 Adult failure to thrive; I48.20 Chronic atrial fibrillation, unspecified; F41.8 Other specified anxiety disorders; N18.30 Chronic kidney disease, stage 3 unspecified; F03.90 Unspecified dementia, unspecified severity, without behavioral disturbance, psychotic disturbance, mood disturbance, and anxiety; Z86.711 Personal history of pulmonary embolism; Z79.4 Long term (current) use of insulin; E53.8 Deficiency of other specified B group vitamins; E11.22 Type 2 diabetes mellitus with diabetic chronic kidney disease; I12.9 Hypertensive chronic kidney disease with stage 1 through stage 4 chronic kidney disease, or unspecified chronic kidney disease; Z79.01 Long term (current) use of anticoagulants; K21.9 Gastro-esophageal reflux disease without esophagitis; Z96.641 Presence of right artificial hip joint
CPT/HCPCS: 36415; 80053; 83605; 85025; 85610; 85730; 86140; 87040; 87077; 87186; 93005; 96360; 96361; 99285; G0378; J7120